=== PATIENT | female | born 1950 | race Caucasian/White ===

== ENCOUNTER 2023-11-18 12:05 | Emergency (ER) | payer OTHER, SELFPAY ==
[2023-11-18 12:14] VITALS: BP 170/86; PULSE 60; RESP 18; TEMP 36.6; O2SAT 99; BMI 22.3
--- NOTE | 2023-11-18 12:56 | CRLHL7_ITS ---
For Patients: As a result of the Century Cures Act, medical imaging exams and procedure reports are released immediately into your electronic medical record. You may view this report before your referring provider. If you have questions, please contact your health care provider. INDICATION: Elbow injury from Fall TECHNIQUE: Elbow radiograph 3 views right COMPARISON: None FINDINGS: Bone: No acute fractures or aggressive bone lesions are identified. Joint: The elbow joint is unremarkable. Moderate elbow effusion is present with displacement of the anterior fat pad. Soft tissue: Unremarkable. No radiopaque foreign bodies are seen. IMPRESSION: 1. Moderate elbow effusion is present with displacement of the anterior fat pad. While no acute osseous injuries are demonstrated, the presence of an elbow effusion in the setting of trauma is highly suspicious for an occult osseous injury. Evaluation with MRI or CT may be helpful. Dictated by Salomon Addison MD @ 11/18/2023 2:15:22 PM Dictated by: Salomon Addison MD @ 11/18/2023 14:15:26 (Electronically Signed)
--- NOTE | 2023-11-18 12:56 | CRLHL7_ITS ---
For Patients: As a result of the Cures Act, medical imaging exams and procedure reports are released immediately into your electronic medical record. You may view this report before your referring provider. If you have questions, please contact your health care provider. INDICATION: Shoulder injury from Fall TECHNIQUE: Shoulder radiograph 3 views right COMPARISON: None FINDINGS: Bone: No acute fractures or aggressive bone lesions are identified. Lateral downsloping of the acromion is present which can predispose this patient to subacromial impingement. Joint: Osteoarthritis at the glenohumeral joint is noted but difficult to quantify since the joint is not profiled. The acromioclavicular joint has mild osteoarthritis. Soft tissue: Unremarkable. The visualized hemithorax is unremarkable in appearance. No radiopaque foreign bodies are seen. IMPRESSIONS: 1. No acute osseous injuries or abnormalities are noted. 2. Lateral downsloping of the acromion is present which can predispose this patient to subacromial impingement. Dictated by Salomon Addison MD @ 11/18/2023 2:15:58 PM Dictated by: Salomon Addison MD @ 11/18/2023 14:16:03 (Electronically Signed)
--- NOTE | 2023-11-18 12:56 | CRLHL7_ITS ---
For Patients: As a result of the Cures Act, medical imaging exams and procedure reports are released immediately into your electronic medical record. You may view this report before your referring provider. If you have questions, please contact your health care provider. INDICATION: Humerus injury from Fall TECHNIQUE: Humerus radiograph 2 views right COMPARISON: None FINDINGS: Bone: No acute fractures or aggressive bone lesions are identified. Moderate diffuse osteopenia is present. Joint: An elbow effusion is present and discussed on separate report. Mild AC and glenohumeral joint osteoarthritis are noted. Soft tissue: Unremarkable. No radiopaque foreign bodies are seen. IMPRESSION: 1. No acute osseous injuries or abnormalities are noted. Dictated by Salomon Addison MD @ 11/18/2023 2:17:04 PM Dictated by: Salomon Addison MD @ 11/18/2023 14:17:08 (Electronically Signed)
--- NOTE | 2023-11-18 12:58 | ED.GENADULT ---
HPI - General Adult General Chief complaint: Extremity Pain/Injury, Upper Stated complaint: Right arm pain Time Seen by Provider: 11/18/23 12:07 History of Present Illness HPI narrative: Patient is a 71 year white female who fell last she fell forward hit her chin hit both arms, zoey her right arm and shoulder. Subsequently over the next few days she was trying to put a shirt on and felt the abnormal sensation right upper extremity cause pain. She she is not noting pain around her elbow on the right and in her distal biceps area and distal arm. She has had limitations in full flexion of her elbow she is able to extend her elbow. She is able to pronate and supinate but with some limitations of extremes of range of motion. She has no marked bruising or ecchymoses but it is a little bit swollen she has been icing it. She has no neck pain she also describes some mild anterior shoulder discomfort. No neck pain. Related Data Home Medications ?Medication ?Instructions ?Recorded ?Confirmed alendronate 70 mg tablet 70 mg PO 11/18/23 latanoprost 0.005 % eye drops drp ophthalmic (eye) 11/18/23 lisinopril 10 mg tablet 10 mg PO BID 11/18/23 11/18/23 metoprolol succinate 25 mg 25 mg PO BID 11/18/23 11/18/23 tablet,extended release 24 hr rivaroxaban 20 mg tablet (Xarelto) 20 mg PO DAILY 11/18/23 11/18/23 rosuvastatin 10 mg tablet 10 mg PO QPM 11/18/23 11/18/23 ticagrelor 90 mg tablet (Brilinta) 90 mg PO BID 11/18/23 11/18/23 Allergies Allergy/AdvReac Type Severity Reaction Status Date / Time adhesive Allergy Unknown Verified 11/18/23 12:12 Sulfa (Sulfonamide Allergy Unknown Verified 11/18/23 12:12 Antibiotics) Review of Systems Status of ROS: Reports: 6 or more systems reviewed and unremarkable except as noted in History and below [facility] Social History Smoking Status: Never smoker How often do you have a drink containing alcohol: never AUDIT-C Alcohol total score: 0 Non-prescribed substance use: denies use Exam Narrative: Exam Narrative: Objective: In general patient is no apparent distress Systolic blood pressure slightly elevated Right anterior shoulder shows some mild anterior tenderness, her right elbow shows limited full flexion to about 45? short of full flexion. She is able to pronate and supinate but some diminished range of motion She get a bruise thenar eminence but has full range of motion with thumb and wrist. Denies other specific concerns. There is no obvious biceps rupture, and no marked medial lateral proximal forearm or distal arm tenderness. Const: Vital Signs, click to edit/add: Vital Signs - 24 hr 11/18/23 12:14 11/18/23 14:36 Temperature 97.9 F 97.9 F Pulse Rate [Pulse Oximeter] 60 60 Respiratory Rate 18 18 Blood Pressure [Ri ght Upper Arm] 170/86 H 170/86 H Pulse Oximetry 99 Oxygen Delivery Me thod Room Air Course Vital Signs Vital signs: Initial Vital Signs Temperature 97.9 F 11/18/23 12:14 Temperature Source Oral 11/18/23 12:14 Pulse Rate 60 11/18/23 12:14 Pulse Rhythm Regular 11/18/23 12:14 Respiratory Rate 18 11/18/23 12:14 Blood Pressure 170/86 H 11/18/23 12:14 Blood Pressure Mean 114 H 11/18/23 12:14 Blood Pressure Position Sitting 11/18/23 12:14 Pulse Oximetry 99 11/18/23 12:14 Oxygen Delivery Method Room Air 11/18/23 12:14 Vital Signs Temperature 97.9 F 11/18/23 12:14 Pulse Rate 60 11/18/23 12:14 Respiratory Rate 18 11/18/23 12:14 Blood Pressure 170/86 H 11/18/23 12:14 Pulse Oximetry 99 11/18/23 12:14 Oxygen Delivery Method Room Air 11/18/23 12:14 Temperature 97.9 F 11/18/23 14:36 Pulse Rate 60 11/18/23 14:36 Respiratory Rate 18 11/18/23 14:36 Blood Pressure 170/86 H 11/18/23 14:36 Pulse Oximetry 99 11/18/23 12:14 Oxygen Delivery Method Room Air 11/18/23 12:14 Medical Decision Making MDM Narrative Medical decision making narrative: [age] white female with a fall with a right elbow injury and probable right shoulder injury from a jarring of the fall. Would check an x-ray of her humerus on the right her elbow and her shoulder. Disposition pending findings. She also is on Xarelto. Disposition pending x-ray findings. If these are reassuring she may benefit from a sling icing and follow up with orthopedics on an outpatient basis. Addendum 2:21 p.m. 11/18/2023: The patient has an x-ray that shows a posterior fat pad sign consistent with an occult fracture. I do not see any obvious other fracture of her elbow. Her humerus and shoulder appear unremarkable. She was placed in a posterior arm sling and a posterior arm splint with Ortho last. This procedure was accomplished by myself. She was comfortable the positioning of the splint and did not feel it was too tight. At this point recommend orthopedic follow-up in 3-5 days, Advil or Tylenol for discomfort. And she does have a travel planned in the next week so trying get her in to Ortho within the next few days to discuss her treatment options. Discharge Plan Discharge Clinical Impression: Injury of elbow, right Patient Disposition: Home w/ Parent or Adult Condition: Improved Additional Instructions: Elevate, ice, use Advil as needed or Tylenol. Recommend Ortho follow-up in the next 3-5 days. If you don't hear back from Ortho Clinic by Monday afternoon, call [phone] for an appointment. Wear your arm sling, return if problems or concerns or your sling is too tight. Activity Level: Light activity Discharge Diet: Regular Prescriptions: No Action latanoprost 0.005 % drops ophthalmic (eye) alendronate 70 mg tablet 70 mg PO lisinopril 10 mg tablet 10 mg PO BID metoprolol succinate 25 mg tablet extended release 24 hr 25 mg PO BID rosuvastatin 10 mg tablet 10 mg PO QPM Brilinta 90 mg tablet 90 mg PO BID Xarelto 20 mg tablet 20 mg PO DAILY Follow Up/Referrals: Laurita Duncan MD [Primary Care Provider] - Stand Alone Forms: [employer] Info Instructions
[2023-11-18 14:36] VITALS: BP 170/86; PULSE 60; RESP 18; TEMP 36.6
== END 2023-11-18 14:37 | disposition home or self-care (01) ==
PROVIDERS: Emergency Provider Family Medicine; PCP Family Medicine
DX: S59.901A Unspecified injury of right elbow, initial encounter (principal); W19.XXXA Unspecified fall, initial encounter
CPT/HCPCS: 73030; 73060; 73080; 99283; 99284

== ENCOUNTER 2024-02-27 09:00 | Outpatient (RCR) | payer MEDICARE, OTHER, SELFPAY ==
--- NOTE | 2024-01-04 09:35 | OT.OPOE ---
OT Outpatient Ortho Eval OT Outpatient Ortho Eval* Start: 01/04/24 08:16 Freq: Status: Active Protocol: Document 01/04/24 08:16 CHAPIS (Rec: 01/04/24 09:33 CHAPIS [id number]) E-signed By Tanisha Cosme, OTR/L, CLT OT OP Ortho Eval Details Complexity Complexity Low Insurance Information Insurance Information [employer],Medicare B Outpatient History/Precautions Current Condition/Medical Diagnosis Referring Provider Dr. Rigoberto Cedillo Medical Diagnoses S42.401D Fracture of the lower end of Right humerus, subsequent encounter for fracture with routine healing Right radial neck occult fracture Treatment Diagnosis Stiffness of R elbow, M25.621 R elbow pain, M25.521 Date of Onset 11/16/2023 Other Precautions Ortho f/u was on 12/18/23: She may continue to ramp up activity as her elbow will allow. If symptoms are significantly improved in 4-6 weeks, she does not need to return to see me. If otherwise, she should return to see me. She is comfortable with this plan. Other Conditions Fracture of right elbow (Acute ) S42.401A - Unspecified fracture of lower end of right humerus, initial encounter for closed fracture (ICD-10) Medical History (Reviewed @ 14:29 by Gisselle Davies ~ LAT ATC) Osteopenia M85.80 - Other specified disorders of bone density and structure, unspecified site ( ICD-10) CAD in [place] artery I25.10 - Atherosclerotic heart disease of [place] coronary artery without angina pectoris (ICD-10) Paroxysmal supraventricular tachycardia I47.10 - Supraventricular tachycardia, unspecified (ICD- 10) Surgical History (Reviewed @ 14:29 by Gisselle Davies ~ LAT ATC) History of heart artery stent Z95.5 - Presence of coronary angioplasty implant and graft (ICD-10) History of biopsy (11/1994) Z98.890 - Other specified postprocedural states (ICD-10) History of open reduction and internal fixation (ORIF) procedure (1983) Z98.890 - Other specified postprocedural states (ICD-10) Lipoma (1994) D17.9 - Benign lipomatous neoplasm, unspecified (ICD-10) Medical/Functional History Medical History Reviewed Yes Prior Level of Function/Mobility Indep with ADLs/IADLs and still Driving Social History Employment Status Retired Other Critical Job [employer] 2 grandkids that are 4 and 8 years old 2x/week Ortho Subjective Subjective Subjective Patient is a pleasant 73yr old female. Presented to the ED with right upper extremity pain on 11/16/23 after falling from a standing height. She had x-rays of her shoulder, arm and elbow. She was placed in a long-arm splint in asked to follow-up. She is right- hand dominant. She has never injured this area previously. On 11/20/23 she was seen by Ortho provider, Dr. Cedillo. The Ameya Navarrete splint was removed.= with some antecubital fossa ecchymosis. The contour of the biceps and elbow was normal. She had a second f/u apt with Ortho again on 12/18/23 and was referred to skilled OT to address AROM of the R elbow, address some mild pain/ discomfort and slowly begin strengthening with a customized HEP. Pain Assessment Pain Pain Yes Pain Comments 04/29 R elbow/forearm including the R wrist Goniometric Comments Goniometric Comments Goniometric Comments R Elbow (Extension/Flexion) range of motion is 5-135 degrees with 90? of pronation/ supination in L and R forearm R wrist Flexion 50 degrees, Extension 60 degrees (L non effected side is 55 degrees of Flexion and 65 degrees of Extension Hand Pinch/Excel Developer Strength Hand Pinch/Excel Developer Strength Hand Pinch/Excel Developer Strength Left Hand,Right Hand Left Hand Excel Developer Strength Position 1 in Elbow 50 Flexion (lbs) Excel Developer Strength Position 2 in Elbow 57 Extension (lbs) Lateral Pinch Strength (lbs) 10 Three Point Pinch (lbs) 10 Right Hand Excel Developer Strength Position 1 in Elbow 45 Flexion (lbs) Excel Developer Strength Position 2 in Elbow 50 Extension (lbs) Lateral Pinch Strength (lbs) 16 Three Point Pinch (lbs) 16 OT Objective Data Observations/Posture/Limb Appearance Objective Observations Right elbow: Residual forearm ecchymosis Additional Information Objective Additional Information IMAGING: AP, Lateral and Radial Head views of the right elbow were obtained today. These potentially show a nondisplaced radial neck fracture, seen only on the AP view on the ulnar side of the neck. OT Problems Problems Problems Decreased Strength,Decreased Range of Motion,Pain,Lifting, Gripping,Pinching Other Problems Writing,Opening Containers, Dressing Patient Potential Good Assessment Assessment Assessment Patient is a pleasant 73yr old female. Presented to the ED with right upper extremity pain on 11/16/23 after falling from a standing height. She had x-rays of her shoulder, arm and elbow. She was placed in a long-arm splint in asked to follow-up. She is right- hand dominant. She has never injured this area previously. On 11/20/23 she was seen by Ortho provider, Dr. Cedillo. The Ameya Navarrete splint was removed.= with some antecubital fossa ecchymosis. The contour of the biceps and elbow was normal. She had a second f/u apt with Ortho again on 12/18/23 and was referred to skilled OT to address AROM of the R elbow, address some mild pain/ discomfort and slowly begin strengthening with a customized HEP. PLAN: treat pain symptoms with the use of modalities as indicated, manual therapy for progressing AROM, development of an individualized HEP, patient education on the progression of treatment and activity modifications while healing. 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 2. Through activity participation in skilled therapy sessions, and consistency in performing a customized HEP, patient will improve capacity of tendons and muscles to manage load in order to have less pain with ADLs, work, leisure activities and IADLs. 3. Patient will demonstrate an improvement in the R hand/ wrist/forearm/elbow AROM in order to return to every day household and leisure tasks w/ o difficulty or discomfort. Target Date 8 weeks Treatment Plan Treatment Plan Evaluation,Joint Mobilization, Manual Therapy,Ultrasound, Therapeutic Exercise, Therapeutic Activities,Self Care/Home Management,Education Expected Frequency 1-2x Week Expected Duration 8-10 Weeks Home Program Home Program Home Program Initiated Home Program Specifics Access Code: [email or web address] URL: [email or web address] Date: 01/04/2024 Prepared by: Tanisha Cosme Exercises - Supine Elbow Flexion Extension AROM - 1 x daily - 7 x weekly - 3 sets - 10 reps - Forearm Pronation and Supination with Hammer - 1 x daily - 7 x weekly - 3 sets - 10 reps - Forearm AAROM Supination and Pronation with Ball - 1 x daily - 7 x weekly - 3 sets - 10 reps - Wrist AAROM Flexion and Extension - 1 x daily - 7 x weekly - 3 sets - 10 reps - Wrist Prayer Stretch at Table - 1 x daily - 7 x weekly - 3 sets - 10 reps - Standing Wall Ball Circles with Mini Monegasque Ball - 1 x daily - 7 x weekly - 3 sets - 10 reps - Scaption Wall Slide with Towel - 1 x daily - 7 x weekly - 3 sets - 10 reps - Shoulder Circles on Wall with Towel - 1 x daily - 7 x weekly - 3 sets - 10 reps Certification Certification Statement I Certify That: Therapy Services Provided, Therapy Plan Established, Therapy Plan Reviewed Certification Information Clinic ID # [id number] Initial Certification Date 01/04/24 Recertification Due Date 03/04/24 Provider Signature Required Yes Provider Signature Shows Agreement With POC & Medical Necessity Physician NPI Number Write NPI# Here Physician Comment/Change Comment or Changes Physician Signature & Date Requested Please Sign/Date Here
== END 2024-02-27 09:55 | disposition home or self-care (01) ==
PROVIDERS: PCP Family Medicine; Visit Provider Orthopaedic Surgery
DX: S42.401D Unspecified fracture of lower end of right humerus, subsequent encounter for fracture with routine healing (principal); M25.621 Stiffness of right elbow, not elsewhere classified; M25.521 Pain in right elbow; Z51.89 Encounter for other specified aftercare
CPT/HCPCS: 97110; 97140; 97165; X5282

== ENCOUNTER 2024-12-13 22:04 | Emergency (ER) | payer MEDICARE, SELFPAY ==
--- OUTSIDE RECORDS SUMMARY | 2024-12-13 22:06 | XMS_ITS | Encounter Summary ---
Author Organization [facility] Address [address] [place] [address]. [place] [address] Care Team Providers Care Battery Tester Name Role Phone Laurita Duncan MD Primary Care Provider + Rivka Stroud DO Unavailable [phone] William Ordoñez MD Unavailable [phone] Rivka Stroud DO Unavailable [phone] Encounter Details Date Type Department Care Team (Late st Contact Info) Description 04/12/2024 [facility] Medical Advice [facility] Heart Clinic [address] [address] May Social History Tobacco Use Types Packs/Day Years Used Date Smoking Tobacco: Never Smokeless Tobacco: Never Alcohol Use Standard Drinks/Week Comments No 0 (1 standard drink = 0.6 oz pur e alcohol) PHQ-2 Answer Date Recorded PHQ-2 Score 0 03/31/2023 Adolescent Education Answer Date Record ed Getting School Help Needed Not on file 12/04 Comments Unknown Sex and Gender Information Value Date Recorded Sex Assigned at Not on file 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 Gender Identity Not on file Sexual Orientation Not on file documented as of this encounter Plan of Treatment Not on file documented as of this encounter Visit Diagnoses Not on filedocumented in this encounter Care Teams Battery Tester Relationship Specialty Start Date End Date Laurita Duncan MD [facility] [address] [place] [address] PCP - General Family Practice 10/18/17 Rivka Stroud DO [address] [place] [address] Physician Cardiovascular Disease 01/06/23 William Ordoñez MD [address] [facility] [address] [place] [address] Assigned Heart and Vascular Provider 10/13/23 08/11/24 Rivka Stroud DO [address] [place] [address] Assigned Heart and Vascular Provider 08/12/24 documented as of this encounter
--- OUTSIDE RECORDS SUMMARY | 2024-12-13 22:06 | XMS_ITS | Encounter Summary ---
Author Organization [place] Address [facility] [place] [address] Care Team Providers Care Home Care Manager Rn Name Role Phone Laurita Duncan MD Primary Care Provider + Rivka Stroud DO Unavailable [phone] Rivka Stroud DO Unavailable [phone] Reason for Visit * Reason Onset Date Comments Symptoms 11/22/2024 Shortness of hari ath Encounter Details Date Type Department Care Team (Late st Contact Info) Description 11/22/2024 Telephone [facility] Clinic [address] [place] [address] Rivka Stroud DO [address] [facility] [address] [place] [address] Symptoms (Shortness of breath ) Social History Tobacco Use Types Packs/Day Years [...] on file 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 Rizzo recommendations. Patient verbalized understanding and is in agreement with plan. Patient will call us in January when she is ready to transition from Brilinta to Plavix. Probably brillinta but she agreed to continue to the end of this year. At the end of January we can switch her to plavix without loading dose. Dr. Stroud * Telephone Encounter - Dwayne Kauffman RN - 11/22/2024 3:41 PM CDT RN called patient and she confirmed for RN that she has been noticing some intermittent shortness of breath with light activity. Patient denies any shortness of breath at rest. Patient currently denies any shortness of breath or chest pain. Patient also denies any chest pain/pressure at rest or with activity. Patient reports the shortness of breath with activity is intermittent and doesn't alwaysoccur. Patient was concerned the shortness of breath was caused by Brilinta. RN reviewed with patient that typically that occurs at rest and/or is not associated with activity. RN did advise patient that this RN will send these updates to Dr. Stroud for review and recommendation. Patient verbalizedunderstanding and is in agreement with plan. Of note: patient had negative stress test on 08/05/24 * Telephone Encounter - Marissa Garza - 11/22/2024 3:23 PM CDT [facility] Call Center Phone Message May a detailed message be left on voicemail: yes Reason for Call: Symptoms or Concerns If patient has red-flag symptoms, warm transfer to triage line Current symptom or concern: Shortness of breath Patient stated they have been experiencing shortness of breath more than normal and will like to know if they could stop taking Brilinta for a bit to see if that helps with it, or will like to know what provider recommends. Patient stated the shortness of breath happens more often when they are doing some little activity. Patient is feeling fine as of now. Please call patient back to further discuss. Action Taken: Other: Cardiology Travel Screening: Not Applicable Thank you! [facility] documented in this encounter Plan of Treatment Not on file documented as of this encounter Visit Diagnoses Not on filedocumented in this encounter Care Teams Home Care Manager Rn Relationship Specialty Start Date End Date Laurita Duncan MD [facility] [address] [place] [address] PCP - General Family Practice 10/18/17 Rivka Stroud DO [address] [facility] [address] [place] [address] Physician Cardiovascular Disease 01/06/23 Rivka Stroud DO [address] [facility] [address] [place] [address] Assigned Heart and Vascular Provider 08/12/24 documented as of this encounter
--- OUTSIDE RECORDS SUMMARY | 2024-12-13 22:06 | XMS_ITS | Encounter Summary ---
Author Organization [facility] Address [address] [place] [address]. [place] [address] Care Team Providers Care Medical Biller Coder Name Role Phone Laurita Duncan MD Primary Care Provider + Rivka Stroud DO Unavailable + [phone] William Ordoñez MD Unavailable [phone] Rivka Stroud DO Unavailable [phone] Reason for Visit * Reason Onset Date Comments Refill Request 04/15/2024 metoprolol succi megan ER (TOPROL XL) 25 MG 24 hr tablet Encounter Details Date Type Department Care Team (Late st Contact Info) Description 04/15/2024 Telephone [facility] [address] [facility] [address] [place] [address] Rivka Stroud DO [address] [facility] [address] [place], [place] [id number] Refill Request (metoprolol succinate ER (TOPROL XL) 25 MG 24 hr tablet) Social History Tobacco Use Types Packs/Day Years [...] on file Legal Sex 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 Yes Name of medication being requested: metoprolol succinate ER (TOPROL XL) 25 MG 24 hr tablet Provider who prescribed the medication: Dr. Stroud Pharmacy: [facility] HOME DELIVERY - [address] Date medication is needed: 04/29/2024 Action Taken: Other: Cardiology Travel Screening: Not Applicable Thank you! [facility] Date of Service: ONNEL ASSISTANT documented in this encounter Plan of Treatment Not on file documented as of this encounter Visit Diagnoses Not on filedocumented in this encounter Care Teams Medical Biller Coder Relationship Specialty Start Date End Date Laurita Duncan MD [facility] [id number] [place] [id number] PCP - General Family Practice 10/18/17 Rivka Stroud DO [address] [place] [id number] Physician Cardiovascular Disease 01/06/23 William Ordoñez MD [address] [place] [id number] Assigned Heart and Vascular Provider 10/13/23 08/11/24 Rivka Stroud DO [address] [place] [id number] Assigned Heart and Vascular Provider 08/12/24 documented as of this encounter
--- OUTSIDE RECORDS SUMMARY | 2024-12-13 22:06 | XMS_ITS | Clinical Summary ---
Author Organization [facility] Address [address] [place] [id number] Care Team Providers Care Farmworker Pullet Farm Name Role Phone Laurita Duncan MD Primary Care Provider + Allergies Active Allergy Reactions Criticality Noted Date Comments Adhesive Rash 06/05/2023 Reddness/itching of the skin from stickers at [facility] Codeine 03/19/2010 Sulfa (Sulfonamide Antibiotics) 03/19/2010 Medications calcium with vitamin D3 (OS-MARISELA 500 + D) tabletIndication s:Osteopenia Take 1 tablet by mouth once daily with a meal. 1 tablet 0 06/12/2014 Active latanoprost (XALATAN) 0.005 % ophthalmic solution 07/01/2020 Active medication order composerIndicati ons:Foot pain, left Lace up ankle support brace 1 Each 10/12/2020 Active ticagrelor (BRILINTA) 90 mg tablet Take 90 mg by mouth two times daily. 08/07/2023 Active rivaroxaban (XARELTO) 20 mg tablet Take 20 mg by mouth once daily with evening meal. 06/05/2023 Active rosuvastatin (CRESTOR) 10 mg tablet Take 10 mg by mouth once daily with evening meal. 04/24/2023 Active nitroglycerin (NITROSTAT) 0.[address] 0.4 mg under the tongue every 5 minutes if needed. 02/15/2023 Active lisinopriL (PRINIVIL; ZESTRIL) 10 mg tabletIndication s:HTN (hypertension) Take 1 Tablet (10 mg) by mouth two times daily. 08/11/2023 Active metoprolol succinate 25 mg Sustained-Releas e tablet Take 25 mg by mouth two times daily. 04/15/2024 Active alendronate (FOSAMAX) 70 mg tabletIndication s:Osteopenia, unspecified location Take 1 Tablet (70 mg) by mouth once a week in the morning. Take on empty stomach with full glass of water. Do not lie down for 1 hr. 13 Tablet 3 09/04/2024 Active Active Problems Problem Noted Date Diagnosed Date CAD in benton artery 08/11/2023 Overview (08/11/2023): 2022: She was referred for coronary angiogram that showed a significant 95% stenosis in the mid RCA and mild to moderate disease elsewhere. She underwent a complex PCI using a 2.75 x 15 mm drug-eluting stent leaving 70% residual stenosis postintervention. She returned to the Senior Applications Analyst on 03/03/2023 as part of a staged repeat intervention with intracoronary lithotripsy and laser atherectomy followed by a 3.5 x 20 mm MARIE proximal to and overlapping the original stent. Paroxysmal SVT (supraventricular tachycardia) Overview (01/18/2023): Zio 12/2022; >10 000 episodes History of COVID-19 07/26/2021 Overview (07/26/2021): Onset 07/15/2021 HTN (hypertension) 06/12/2014 Arthritis 04/09/2010 Osteopenia 04/09/2010 Overview (06/12/2014): 11.13.2006 normal BMD of the spine; mild penia of the left hip. Went off the fosamax in 2010 with normal BMD and mild penia of hip improved. Plan to recheck in 2016. Resolved Problems Problem Noted Date Diagnosed Date Resolved Date Lymphoma 04/09/2010 04/09/2010 Environmental allergies 04/09/201005/22 Hypertension 04/09/2010 05/25/2011 Encounters Date Type Department Care Team Description 09/13/2024 Telephone [facility] [address] [place] [address] Laurita Duncan MD Results 09/12/2024 10:00 AM CDT Orders Only [facility] [address] [place] [address] Lab 09/12/2024 Travel from Last 3 Months Immunizations Immunization Administration Dates Next Due COVID-19 vaccine (Pfizer-Bio NTech 30mcg/0.3mL) 12YO+ BIVALENT PF, MDV 11/26/2021 COVID-19 vaccine (Pfizer-Bio NTech 30mcg/0.3mL) PF, MDV 12/29/2020,05/19/2020,04/28/2020 Influenza, IIV3 (Age >=3 years) 03/06/2013 Influenza, Inactivated AIIV4 (Age 65+ Years) Preserv Free 12/28/2022,12/20/2021 Influenza, Inactivated IIV3 (Age 65+ Years) Preserv Free 11/22/2023,02/25/2019,01/03/2018 Pneumococcal Poly,23-Valent (Pneumovax) 10/08/19 21 Pneumococcal conj 13-Valent (Prevnar 13) 020 Td (Age >=7 Years) 09/06/2004 Tdap 06/12/2014 Family History Medical History Relation Name Comments Good Health Daughter 1 Tari Good Health Daughter 2 Marjorie Thyroid Disease Daughter 2 Marjorie s/p thyroide ctomy; benign Heart Disease Father [place] during surg mikael Hypertension Father Stroke Father had a brain sergio or Emphysema Maternal Grandmother Hypertension Mother Heart attack Paternal Grandfather Dementia Paternal Grandmother Hypertension Sister 1 Christie severe Heart Disease Sister 2 Carly ACID/pacemaker , silent [place] Hypertension Sister 2 Carly Hypertension Sister 3 Concetta Hypertension Son 1 Ameya Liver disease Son 1 Ameya Good Health Son 2 Ed Relation Name Status Comments Daughter 1 Tari Alive Daughter 2 Marjorie Alive Father (Age 60's) brain ca ncer, stroke Maternal Grandfather Maternal Grandmother Mother (Age 82) lung cance r Paternal Grandfather Paternal Grandmother Sister 1 Christie (Age 44) heart dise ase Sister 2 Carly Alive Sister 3 Concetta Alive Son 1 Ameya Son 2 Ed Alive Social History Tobacco Use Types Packs/Day Years Used Date Smoking Tobacco: Never Passive Smoke Exposure: Never Smokeless Tobacco: Never Tobacco Cessation:Counseling Given: Not Answered Alcohol Use Standard Drinks/Week Comments No 0 (1 standard drink = 0.6 oz pur e alcohol) PHQ-2 Answer Date Recorded PHQ-2 TOTAL SCORE 0 06/20/2024 Social Connections Answer Date Recorded Do you often feel lonely or isolated from those around you? 0 12/28/2022 Financial Resource Strain Answer Date R ecorded Difficulty of Paying Living Expenses 3 12/28/2022 Difficulty of Paying Living Expenses Not on file 12/28/2022 Food Insecurity Answer Date Recorded Do you worry your food will run out before you are able to buy more? 1 12/28/2022 Transportation Needs Answer Date Record ed Does lack of transportation keep you from medica l appointments? 1 12/28/2022 Does lack of transportation keep you from work, meetings or getting things that you need? 1 12/28/2022 Housing Stability Answer Date Recorded What is your housing situation today? 1 12/28/2022 Comments No Sex and Gender Information Value Date Recorded Sex Assigned at Not on file Legal Sex Female 7:53 AM AUTOMOBILE UPHOLSTERER Gender Identity Not on file Sexual Orientation Not on file Obstetrics History Para Term AB IAB SAB Ectopic Multiple Livin g Live Births 7 0 0 0 0 0 0 0 0 4 Date Outcome GA Total Labor Labor/2nd/3rd Weight Sex Type Anes PTL Marilyn A1 A5 Name Clin Comments Patient had 7 pregnancies wi th 3 miscarriages and 4 live births Last Filed Vital Signs Vital Sign Reading Time Taken Comments Blood Pressure 136/74 06/20/2024 8:27 AM CDT Pulse 68 06/20/2024 8:27 AM CDT Temperature 36.6 C (97.9 F) 06/20/2024 8:27 AM CDT Respiratory Rate 14 04/22/2015 9:20 AM AUTOMOBILE UPHOLSTERER Oxygen Saturation - - Inhaled Oxygen Concentration - - Weight 60.9 kg (134 lb 4.8 oz) 06/20/2024 8:27 A M CDT Height 163.2 cm (5' 4.25) 08/09/2023 7:31 AM CD T Body Mass Index 22.87 08/09/2023 7:31 AM CDT Plan of Treatment Health Maintenance Due Date Last Done Comments Hepatitis C screening for age 18-79 07/02/1969 Zoster (shingles) series for age 50+ (1 of 2) 07/02/2001 RSV vaccine for adults or (1 - Risk 60-74 years 1-dose series) 2011 Medicare Wellness for age 65+ 12/29/2023 12/28/2022, 12/20/2021, 10/07/2020, Additional history exists Tetanus booster 06/12/2024 06/12/2014, 09/06/2004 BMI (ht and wt on same day) for age 18+ 08/08/2024 08/09/2023, 12/28/2022, 03/21/2022, Additional history exists COVID-19 vaccine series ( season) 2024 11/26/2021, 07/01/2021, 12/29/2020, Additional history exists Influenza Vaccine (#1) 2024 , 12/28/2022, 12/20/2021, Additional history exists Mammogram for age 45-75 01/04/2025 01/05/20 24, 12/28/2022, 12/23/2021, Additional history exists Depression screening for age 12+ 06/21/2025 06/21/2024, 06/20/2024, 12/28/2022, Additional history exists Colonoscopy through age 75 11/03/2027 11/02/2017, Lipids for age 45-75 09/12/2029 09/12/2024, 12/20/2021, 09/07/2016, Additional history exists Pneumococcal series for age 50+ Completed 10/07/2020, 02/25/2019 DEXA/DXA scan for age 65+ Completed 2022, 04/01/2019, 06/30/2015, Additional history exists Hepatitis B series for 19+ Aged Out N o longer eligible based on patient's age to complete this topic Procedures Procedure Name Priority Date/Time Associated Diagnosis Comments BASIC METABOLIC PANEL Routine 09/12/2024 9:50 AM CDT HTN (hypertension) CAD in benton artery LIPID PANEL W REFLEX MEASURED LDL Routine 09/12/2024 9:50 AM CDT HTN (hypertension) CAD in benton artery XR MAMMO JUSTIN BILAT SCREEN Routine 01/05/2024 1:33 PM AUTOMOBILE UPHOLSTERER Screening breast examination XR DXA BONE DENSITY 2 SITES AXIAL Routine 01/17/2023 2:15 PM AUTOMOBILE UPHOLSTERER Osteopenia, unspecified location Post-menopausal SCAN-COLONOSCOPY 11/02/2017 12:0 0 AM CDT from Last 3 Months or Most Recently Relevant to Health Maintenance Results * LIPID PANEL W REFLEX MEASURED LDL (09/12/2024 9:50 AM CDT) CHOLESTEROL, TOTAL 119 <200 mg/dL 09/13/2024 4:54 AM CDT [facility] TRIGLYCERIDES 80 <150 mg/dL 09/13/2024 4:54 AM CDT [facility] HDL CHOLESTEROL 65 > OR = 50 mg/dL 09/13/2024 4:54 AM CDT [facility] NON HDL CHOLESTEROL 54 <130 mg/dL (calc) 09/13/2024 4:54 AM CDT [facility] Comment: For patients with diabetes plus 1 major ASCVD risk factor, treating to a non-HDL-C goal of <100 mg/dL (LDL-C of <70 mg/dL) is considered a therapeutic option. CHOL/HDLC RATIO 1.8 <5.0 (calc) 09/13/2024 4:54 AM CDT [facility] LDL-CHOLESTEROL 38 mg/dL (calc) 09/13/2024 4:54 AM CDT [facility] Comment: Reference range: <100 Desirable range <100 mg/dL for primary prevention; <70 mg/dL for patients with CHD or diabetic patients with > or = 2 CHD risk factors. LDL-C is now calculated using the Harman calculation, which is a validated novel method providing better accuracy than the Friedewald equation in the estimation of LDL-C. Ricky BLANCO et al. ROBERT. 2013;310(19): 4290-1250 (http://education.LOC&ALL.eeden/faq/EDT197) Blood BLOOD SPECIMEN / Unknown [facility] / Unknown 09/12/2024 9:50 AM CDT 09/12/2024 9:50 AM CDT us Laurita Duncan MD CHEMISTRY Final Re sult [facility] [address] [place] [address], * (ABNORMAL) BASIC METABOLIC PANEL (09/12/2024 9:50 AM CDT) Pathologist [facility] SODIUM 141 135 - 146 mmol/L 09/13/2024 4:54 AM CDT [facility] POTASSIUM 4.6 3.5 - 5.3 mmol/L 09/13/2024 4:54 AM CDT [facility] CARBON DIOXIDE 28 20 - 32 mmol/L 09/13/2024 4:54 AM CDT [facility] GLUCOSE 100(H) 65 - 99 mg/dL 09/13/2024 4:54 AM CDT [facility] Comment: Fasting reference interval For someone without known diabetes, a glucose value between 100 and 125 mg/dL is consistent with prediabetes and should be confirmed with a follow-up test. CALCIUM 10.2 8.6 - 10.4 mg/dL 09/13/2024 4:54 AM CDT [facility] CREATININE 0.84 0.60 - 1.00 mg/dL 09/13/2024 4:54 AM CDT [facility] BUN/CREATININE RATIO SEE NOTE: 6 - 22 (calc) 09/13/2024 4:54 AM CDT [facility] Comment: Not Reported: BUN and Creatinine are within reference range. EGFR 73 > OR = 60 mL/min/1. 73m2 09/13/2024 4:54 AM CDT [facility] UREA NITROGEN (BUN) 16 7 - 25 mg/dL 09/13/2024 4:54 AM CDT [facility] ELECTROLYTE BALANCE 6(L) 7 - 17 mmol/L (calc) 09/13/2024 4:54 AM CDT [facility] CHLORIDE 107 98 - 110 mmol/L 09/13/2024 4:54 AM CDT [facility] Blood BLOOD SPECIMEN / Unknown [facility] / Unknown 09/12/2024 9:50 AM CDT 09/12/2024 9:50 AM CDT us Laurita Duncan MD CHEMISTRY Final Re sult [facility] [address] [place] [address], * XR MAMMO JUSTIN BILAT SCREEN (01/05/2024 1:33 PM AUTOMOBILE UPHOLSTERER) Anatomical Region Laterality Modality BREASTS, Breast Left, Breast Right Bilateral Mammography 01/05/2024 1:33 PM AUTOMOBILE UPHOLSTERER Impressions 01/08/2024 8:52 AM AUTOMOBILE UPHOLSTERER IMPRESSION: ACR BI-RADS 1: Negative Recommended follow-up: Annual Mammography beginning at age 40 or as discussed with your provider. When performed, computer-aided detection was used in the interpretation of this study. A lay language report of this examination will be mailed to the patient. LIFETIME BREAST CANCER RISK ASSESSMENT SCORE: Lifetime risk of developing breast cancer is 3.8% calculated using the Maya Model and information provided by the patient at the time of screening. The average lifetime risk for developing breast cancer is 12.9% for women born in the [place]. For patients with a lifetime breast cancer risk assessment score of less than 20%, annual screening mammography is recommended. For patients with a lifetime risk of greater than 20%, annual screening mammography supplemented with annual Breast MRI is recommended. Patients in this category are encouraged to discuss this recommendation with their healthcare provider to determine if Breast MRI is appropriate and if so, to obtain a referral and confirm coverage with their health insurance. Recommendations are based on the [employer] Appropriateness Criteria. Patients with a BI-RADS category of 0 should follow the recommendations for further evaluation before considering supplemental screening. Narrative 01/08/2024 8:52 AM AUTOMOBILE UPHOLSTERER EXAM: MAMMOGRAM SCREENING JUSTIN BILATERAL LOCATION: [facility] DATE: 01/05/2024 INDICATION: Asymptomatic. Screening Mammogram. COMPARISON: 12/28/22, 12/23/21 BREAST DENSITY: The breasts are heterogeneously dense, which may obscure small masses. FINDINGS: Tomosynthesis craniocaudal and mediolateral oblique views were obtained. No concerning mammographic findings. Procedure Note Duncan Boucher MD - 01/08/2024 EXAM: MAMMOGRAM SCREENING JUSTIN BILATERAL LOCATION: [facility] DATE: 01/05/2024 INDICATION: Asymptomatic. Screening Mammogram. COMPARISON: 12/28/22, 12/23/21 BREAST DENSITY: The breasts are heterogeneously dense, which may obscure small masses. FINDINGS: Tomosynthesis craniocaudal and mediolateral oblique views were obtained. No concerning mammographic findings. IMPRESSION: IMPRESSION: ACR BI-RADS 1: Negative Recommended follow-up: Annual Mammography beginning at age 40 or as discussed with your provider. When performed, computer-aided detection was used in the interpretation of this study. A lay language report of this examination will be mailed to the patient. LIFETIME BREAST CANCER RISK ASSESSMENT SCORE: Lifetime risk of developing breast cancer is 3.8% calculated using the Maya Model and information provided by the patient at the time of screening. The average lifetime risk for developing breast cancer is 12.9% for women born in the [place]. For patients with a lifetime breast cancer risk assessment score of less than 20%, annual screening mammography is recommended. For patients with a lifetime risk of greater than 20%, annual screening mammography supplemented with annual Breast MRI is recommended. Patients in this category are encouraged to discuss this recommendation with their healthcare provider to determine if Breast MRI is appropriate and if so, to obtain a referral and confirm coverage with their health insurance. Recommendations are based on the [employer] Appropriateness Criteria. Patients with a BI-RADS category of 0 should follow the recommendations for further evaluation before considering supplemental screening. Laurita Duncan MD MAMMO Final Re sult * XR DXA BONE DENSITY 2 SITES AXIAL (01/17/2023 2:15 PM AUTOMOBILE UPHOLSTERER) Anatomical Region Laterality Modality Spine, HIPS, HIPL, HIPR Other 01/17/2023 2:15 PM AUTOMOBILE UPHOLSTERER Impressions 01/17/2023 3:44 PM AUTOMOBILE UPHOLSTERER IMPRESSION: Low bone density (OSTEOPENIA). T score meets the WHO criteria for low bone density (osteopenia) at one or more measured sites. The risk of osteoporotic fracture increases approximately two-fold for each standard deviation decrease in T-score. Narrative 01/17/2023 3:44 PM AUTOMOBILE UPHOLSTERER EXAM: BONE DENSITY LOCATION: [facility] DATE: 01/17/2023 INDICATION: Other specified disorders of bone density and structure, unspecified site. Asymptomatic menopausal state. Patient reports history of vertebral fracture. DEMOGRAPHICS: Age- 72 years. Gender- Female. COMPARISON: 04/01/2019. TECHNIQUE: Dual-energy x-ray absorptiometry (DXA) performed with routine technique. FINDINGS: DXA RESULTS -Lumbar Spine: L1-L4: BMD: 1.201 g/cm2. T-score: 1.4. Z-score: 3.6. -RIGHT Hip Total: BMD: 0.755 g/cm2. T-score: -1.5. Z-score: 0.1. -RIGHT Hip Femoral neck: BMD: 0.658 g/cm2. T-score: -1.7. Z-score: 0.2. -LEFT Hip Total: BMD: 0.655 g/cm2. T-score: -2.4. Z-score: -0.8. -LEFT Hip Femoral neck: BMD: 0.616 g/cm2. T-score: -2.1. Z-score: -0.2. WHO T-SCORE CRITERIA -Normal: T score at or above -1 SD -Osteopenia: T score between -1 and -2.5 SD -Osteoporosis: T score at or below -2.5 SD The World Health Organization (WHO) criteria is applicable to perimenopausal females, postmenopausal females, and men aged 50 years or older. INTERVAL CHANGE -There has been a 5.9% increase in lumbar spine BMD. -There has been a 3.8% decrease in the right hip BMD. -There has been a 8.0% decrease in the left hip BMD. FRACTURE RISK -FRAX Results: The 10 year probability of major osteoporotic fracture is 11.0%, and of hip fracture is 2.5%, based on left femoral neck BMD. RECOMMENDATIONS Consider treatment if major osteoporotic fracture score is greater than or equal to 20%, or if the hip fracture score is greater than or equal to 3%. Procedure Note Elvis Rubalcava MD - 01/17/2023 EXAM: BONE DENSITY LOCATION: [facility] DATE: 01/17/2023 INDICATION: Other specified disorders of bone density and structure, unspecified site. Asymptomatic menopausal state. Patient reports history of vertebral fracture. DEMOGRAPHICS: Age- 72 years. Gender- Female. COMPARISON: 04/01/2019. TECHNIQUE: Dual-energy x-ray absorptiometry (DXA) performed with routine technique. FINDINGS: DXA RESULTS -Lumbar Spine: L1-L4: BMD: 1.201 g/cm2. T-score: 1.4. Z-score: 3.6. -RIGHT Hip Total: BMD: 0.755 g/cm2. T-score: -1.5. Z-score: 0.1. -RIGHT Hip Femoral neck: BMD: 0.658 g/cm2. T-score: -1.7. Z-score: 0.2. -LEFT Hip Total: BMD: 0.655 g/cm2. T-score: -2.4. Z-score: -0.8. -LEFT Hip Femoral neck: BMD: 0.616 g/cm2. T-score: -2.1. Z-score: -0.2. WHO T-SCORE CRITERIA -Normal: T score at or above -1 SD -Osteopenia: T score between -1 and -2.5 SD -Osteoporosis: T score at or below -2.5 SD The World Health Organization (WHO) criteria is applicable to perimenopausal females, postmenopausal females, and men aged 50 years or older. INTERVAL CHANGE -There has been a 5.9% increase in lumbar spine BMD. -There has been a 3.8% decrease in the right hip BMD. -There has been a 8.0% decrease in the left hip BMD. FRACTURE RISK -FRAX Results: The 10 year probability of major osteoporotic fracture is 11.0%, and of hip fracture is 2.5%, based on left femoral neck BMD. RECOMMENDATIONS Consider treatment if major osteoporotic fracture score is greater than or equal to 20%, or if the hip fracture score is greater than or equal to 3%. IMPRESSION: IMPRESSION: Low bone density (OSTEOPENIA). T score meets the WHO criteria for low bone density (osteopenia) at one or more measured sites. The risk of osteoporotic fracture increases approximately two-fold for each standard deviation decrease in T-score. us Laurita Duncan MD DEXA Final Re sult * SCAN-COLONOSCOPY (11/02/2017 12:00 AM CDT) us Scanner OTHER Final Result from Last 3 Months or Most Recently Relevant to Health Maintenance Insurance [employer] HB ONLY MEDICARE PART B HB ONLY [facility] Care Teams [employer]worker [employer] Relationship Specialty Start Date End Date Laurita Duncan MD PCP - General 06/15/09
--- OUTSIDE RECORDS SUMMARY | 2024-12-13 22:06 | XMS_ITS | Encounter Summary ---
Author Organization [facility] Address [address] [place] [address]. [place] [address] Care Team Providers Care Route Sales Delivery Driver Name Role Phone Laurita Duncan MD Primary Care Provider + Rivka Stroud DO Unavailable [phone] William Ordoñez MD Unavailable [phone] Rivka Stroud DO Unavailable [phone] Reason for Visit * Reason Onset Date Comments Call to schedule test 07/26/2024 NM Stress test in [place] Encounter Details Date Type Department Care Team (Late st Contact Info) Description 07/26/2024 Telephone [facility] [address] [place] [address] Rivka Stroud DO [address] [facility] [address] [place], [place] [address] Call to schedule test (NM Stress test in [place] ) Social History Tobacco Use Types Packs/Day [...] on file Legal Sex Female 3:33 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 [facility] Date of Service: documented in this encounter Plan of Treatment Not on file documented as of this encounter Visit Diagnoses Not on filedocumented in this encounter Care Teams Route Sales Delivery Driver Relationship Specialty Start Date End Date Laurita Duncan MD [facility] [address] [place] [address] PCP - General Family Practice 10/18/17 Rivka Stroud DO [address] [place] [address] Physician Cardiovascular Disease 01/06/23 William Ordoñez MD [address] [place] [address] Assigned Heart and Vascular Provider 10/13/23 08/11/24 Rivka Stroud DO [address] [place] [address] Assigned Heart and Vascular Provider 08/12/24 documented as of this encounter
--- OUTSIDE RECORDS SUMMARY | 2024-12-13 22:06 | XMS_ITS | Clinical Summary ---
Author Organization [facility] Address [address] [place] [address] Care Team Providers Care Loan Specialist Name Role Phone Laurita Duncan MD Primary Care Provider + Rivka Stroud DO Unavailable [phone] Rivka Stroud DO Unavailable [phone] Allergies Active Allergy Reactions Criticality Noted Date Comments Adhesive Tape 06/05/2023 Reddness/itching of the skin from stickers at [facility] Codeine Nausea 08/05/2014 Sulfa Antibiotics Nausea 08/05/2014 Medications alendronate (FOSAMAX) 70 MG tablet Take 70 mg by mouth every 7 days 3 Active latanoprost (XALATAN) 0.005 % ophthalmic solution Place into both eyes daily 3 Active calcium carbonate (OS-MARISELA) 1500 (600 Ca) MG tablet Take by mouth daily Active acetaminophen (TYLENOL) 500 MG tablet Take 500-1,000 mg by mouth every 6 hours as needed for mild pain OTC Active nitroGLYcerin (NITROSTAT) 0.4 MG sublingual tabletIndications:O ther cardiomyopathy (H),Abnormal electrocardiogram,S VT (supraventricular tachycardia),Precor dial pain,Family history of ischemic heart disease One tablet under the tongue every 5 minutes if needed for chest pain. May repeat every 5 minutes for a maximum of 3 doses in 15 minutes 25 tablet 2 4 Active lisinopril (ZESTRIL) 10 MG tabletIndications:O ther cardiomyopathy (H) Take 1 tablet (10 mg) by mouth 2 times daily. APPT REQUIRED FOR FURTHER REFILLS 180 tablet 4 5 Active metoprolol succinate ER (TOPROL XL) 25 MG 24 hr tabletIndications:C oronary artery disease involving [place] coronary artery of [place] heart without angina pectoris Take 1 tablet (25 mg) by mouth 2 times daily. 180 tablet 4 5 Active rosuvastatin (CRESTOR) 10 MG tabletIndications:O ther cardiomyopathy (H),Abnormal electrocardiogram,S VT (supraventricular tachycardia),Precor dial pain,Family history of ischemic heart disease Take 1 tablet (10 mg) by mouth daily. 90 tablet 4 5 Active rivaroxaban ANTICOAGULANT (XARELTO) 20 MG TABS tabletIndications:P aroxysmal atrial fibrillation (H) Take 1 tablet (20 mg) by mouth daily (with dinner). 90 tablet 4 5 Active BRILINTA 90 MG tabletIndications:O ther cardiomyopathy (H),Abnormal electrocardiogram,S VT (supraventricular tachycardia),Precor dial pain,Family history of ischemic heart disease Take 1 tablet (90 mg) by mouth 2 times daily. 180 tablet 1 5 Active Active Problems Problem Noted Date Diagnosed Date Ischemic cardiomyopathy 03/31/2023 SVT (supraventricular tachycardia) 03/31/2023 PAC (premature atrial contraction) 03/31/2023 Hyperlipidemia with target LDL less than 70 10/2023 Benign essential hypertension 03/31/2023 Percutaneous transluminal coronary angioplasty s tatus 02/15/2023 Encounters Date Type Department Care Team Description 11/22/2024 Telephone [facility] [address] [place] [address] Rivka Stroud DO Symptoms (Shortness of breath ) from Last 3 Months Immunizations Immunization Administration Dates Next Due COVID-19 MONOVALENT 12+ (Pfizer) 12/29/2020,04/22,04/28/2020 COVID-19 Monovalent 12+ (Pfizer 2021) 07/01/2021 Flu 65+ (Fluad) 02/25/2019,01/03/2018 Influenza (IIV3) PF 03/06/2013 Pneumo Conj 13-V (2010&after) 02/25/2019 Pneumococcal 23 valent 10/07/2020 TDAP (Adacel,Boostrix) 06/12/2014 Td (Adult), Adsorbed 09/06/2004 Family History Medical History Relation Comments Brain Cancer Father Cerebrovascular Disease Father Myocardial Infarction Father Brain Cancer Mother Lung Cancer Mother Liver Disease Son 2 Colon Cancer No family hx of Relation Status Comments Daughter 1 Alive Daughter 2 Alive Father Mother Sister 1 heart disease Sister 2 Alive Sister 3 Alive Son 1 Alive Son 2 Social History Tobacco Use Types Packs/Day Years Used Date Smoking Tobacco: Never Smokeless Tobacco: Never Tobacco Cessation:Counseling Given: [...] on file Legal Sex Female 3:33 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 Gender Identity Not on file Sexual Orientation Not on file Last Filed Vital Signs Vital Sign Reading Time Taken Comments Blood Pressure 142/70 08/05/2024 2:31 PM CDT Pulse 69 08/05/2024 2:31 PM CDT Temperature 36.8 C (98.3 F) 03/03/2023 6:46 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 Respiratory Rate 16 03/03/2023 2:00 PM SELF PAY COLLECTOR Oxygen Saturation 97% 08/05/2024 12:23 PM CDT Inhaled Oxygen Concentration - - Weight 58.8 kg (129 lb 9.6 oz) 08/05/2024 12:23 PM CDT Height 165.1 cm (5' 5) 08/05/2024 12:23 PM CDT Body Mass Index 21.57 08/05/2024 12:23 PM CDT Plan of Treatment Health Maintenance Due Date Last Done Comments ADVANCE CARE PLANNING 1950 ANNUAL REVIEW OF HM ORDERS 1950 CT COLONOGRAPHY 1950 FIT 1950 FLEX SIG 1950 sDNA (Cologuard) 1950 HEPATITIS C SCREENING 07/02/1969 RSV VACCINE (1 - Risk 50-74 years 1-dose series) 07/02/2001 ZOSTER VACCINE (1 of 2) 07/02/2001 FALL RISK ASSESSMENT 07/02/2016 MEDICARE ANNUAL WELLNESS VISIT 12/29/2023 12/28/2022, 12/20/2021 PHQ-2 (once per calendar year) 2024 03/31/2023, 01/31/2023 BMP 03/03/2024 03/03/2023, 02/15/2023 LIPID 03/03/2024 03/03/2023 DTAP/TDAP/TD VACCINE (2 - Td or Tdap) 06/12/2024 06/12/2014, 09/06/2004 COVID-19 VACCINE ( season) 2024 11/26/2021, 07/01/2021, 12/29/2020, Additional history exists INFLUENZA VACCINE (#1) 2024 , 12/28/2022, 12/20/2021, Additional history exists MAMMO SCREENING 01/04/2026 01/05/2024, 12/21, 12/28/2022, Additional history exists DIABETES SCREENING 03/03/2026 03/03/2023, 02/15/2023 COLONOSCOPY 11/03/2027 11/02/2017, 10/21, 11/02/2017, Additional history exists DEXA 01/17/2038 01/17/2023 PNEUMOCOCCAL VACCINE 50+ YEARS Completed 10/07/2020, 02/25/2019 COLORECTAL CANCER SCREENING Discontinued HPV VACCINE (No Doses Required) Completed MENINGITIS VACCINE Aged Out No longer eligible based on patient's age to complete this topic Medical Devices Implanted Type Area Procedure Analyst Device Identifier Shelf Expiration Date Model / Serial / Lot Stent Coronary Sabino Synergy Xd Mr Us [id number] - [id number] Implanted:Qty: 1 on 03/03/2023 at [facility] Stent Drug Eluting (SABINO) [employer] 12/27/2023 [id number] / / [id number] Stent Cor [place] 15x2.75mm [id number] - [id number] Implanted:Qty: 1 on 02/15/2023 at [facility] Stent [employer] 07/02/2023 [id number] / / [id number] Closure Angioseal 6fr [id number] - [id number] Implanted:Qty: 1 on 02/15/2023 at [facility] [employer] 05/21/2023 [id number] / / [id number] Procedures Procedure Name Priority Date/Time Associated Diagnosis Comments LIPID PROFILE STAT Add-on 03/03/2023 7:00 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 BASIC METABOLIC PANEL STAT 03/03/2023 7:00 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 MAMMOGRAM - HIM SCAN 11/14/2017 12:00 AM CDT COLONOSCOPY Routine 11/02/2017 9:28 AM CDT from Last 3 Months or Most Recently Relevant to Health Maintenance Results * Lipid Profile (03/03/2023 7:00 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) Cholesterol 119 <200 mg/dL 03/04/2023 8:43 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 [facility] Triglycerides 58 <150 mg/dL 03/04/2023 8:43 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 [facility] Direct Measure HDL 65 >=50 mg/dL 2023 8:43 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 [facility] LDL Cholesterol Calculated 42 <=100 mg/dL 03/04/2023 8:43 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 [facility] Non HDL Cholesterol 54 <130 mg/dL 03/04/2023 8:43 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 [facility] Blood BLOOD SPECIMEN / Unknown Venipuncture / Unknown 03/03/2023 7:00 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 03/03/2023 7:02 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 Narrative [facility] - 03/04/2023 8:43 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 Cholesterol Desirable: <200 mg/dL Triglycerides Normal: Less than 150 mg/dL Borderline High: 150-199 mg/dL High: 200-499 mg/dL Very High: Greater than or equal to 500 mg/dL Direct Measure HDL Female: Greater than or equal to 50 mg/dL Male: Greater than or equal to 40 mg/dL LDL Cholesterol Desirable: <100mg/dL Above Desirable: 100-129 mg/dL Borderline High: 130-159 mg/dL High: 160-189 mg/dL Very High: >= 190 mg/dL Non HDL Cholesterol Desirable: 130 mg/dL Above Desirable: 130-159 mg/dL Borderline High: 160-189 mg/dL High: 190-219 mg/dL Very High: Greater than or equal to 220 mg/dL us Life Science Technician Invasive LAB - BLOOD ORDERABLES Final Result [facility] [address] [facility], [address] [place] [address] [phone] * (ABNORMAL) Basic metabolic panel (03/03/2023 7:00 AM [facility]) Sodium 140 135 - 145 mmol/L 03/03/2023 7:31 AM [facility] Comment:Reference intervals for this test were updated on 11/15/2022 to more accurately reflect our healthy population. There may be differences in the flagging of prior results with similar values performed with this method. Interpretation of those prior results can be made in the context of the updated reference intervals. Potassium 4.2 3.4 - 5.3 mmol/L 03/03/2023 7:31 AM [facility] Chloride 106 98 - 107 mmol/L 03/03/2023 7:31 AM [facility] Carbon Dioxide (CO2) 28 22 - 29 mmol/L 03/03/2023 7:31 AM [facility] Anion Gap 6(L) 7 - 15 mmol/L 03/03/2023 7:31 AM [facility] Urea Nitrogen 15.3 8.0 - 23.0 mg/dL 03/03/2023 7:31 AM [facility] Creatinine 0.91 0.51 - 0.95 mg/dL 03/03/2023 7:31 AM [facility] GFR Estimate 67 >60 mL/min/1. 73m2 03/03/2023 7:31 AM [facility] Calcium 10.1 8.8 - 10.2 mg/dL 03/03/2023 7:31 AM [facility] Glucose 99 70 - 99 mg/dL 03/03/2023 7:31 AM [facility] Blood BLOOD SPECIMEN / Unknown Venipuncture / Unknown 03/03/2023 7:00 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 03/03/2023 7:02 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 us Rivka Jeri Stroud DO LAB - BLOOD ORDERAB LES Final Result [facility]ORATORY [facility] [address], [address] [place] [address], [facility] [phone] * MAMMOGRAM - HIM SCAN (11/14/2017 12:00 AM CDT) Anatomical Region Laterality Modality Other 11/14/2017 us Provider Outside IMG MAMMOGRAPHY ORDERABLES Tami l Result * COLONOSCOPY (11/02/2017 9:28 AM CDT) COLONOSCOPY [facility] Patient Name: Aleshia Hurtado Procedure Date: 11/02/2017 9:28 AM Date of : 1950 Admit Type: Outpatient Age: 67 Gender: Female Attending MD: Sam Altman MD Total Sedation Time: __20___minutes continuous bedside 1:1 Instrument Name: 138 Procedure: Colonoscopy Indications: Screening for colorectal malignant neoplasm Providers: Sam Altman MD (Doctor) Referring MD: Laurita Duncan MD (Referring MD) Medicines: Midazolam 2 mg IV, Fentanyl 100 micrograms IV Complications: No immediate complications. Procedure: Pre-Anesthesia Assessment: - Prior to the procedure, a History and Physical was performed, and patient medications and allergies were reviewed. The patient is competent. The risks and benefits of the procedure and the sedation options and risks were discussed with the patient. All questions were answered and informed consent was obtained. Patient identification and proposed procedure were verified by the physician in the procedure room. Mental Status Examination: alert and oriented. Airway Examination: normal oropharyngeal airway and neck mobility. Respiratory Examination: clear to auscultation. CV Examination: normal. Prophylactic Antibiotics: The patient does not require prophylactic antibiotics. Prior Anticoagulants: The patient has taken no previous anticoagulant or antiplatelet agents. ASA Grade Assessment: I - A normal, healthy patient. After reviewing the risks and benefits, the patient was deemed in satisfactory condition to undergo the procedure. The anesthesia plan was to use moderate sedation / analgesia (conscious sedation). Immediately prior to administration of medications, the patient was re-assessed for adequacy to receive sedatives. The heart rate, respiratory rate, oxygen saturations, blood pressure, adequacy of pulmonary ventilation, and response to care were monitored throughout the procedure. The physical status of the patient was re-assessed after the procedure. After obtaining informed consent, the colonoscope was passed under direct vision. Throughout the procedure, the patient's blood pressure, pulse, and oxygen saturations were monitored continuously. The Olympus Peds Colonoscope Model #[id number]-[id number], [place]#[id number], SN#[id number] was introduced through the anus and advanced to the cecum, identified by appendiceal orifice and ileocecal valve. The colonoscopy was performed without difficulty. The patient tolerated the procedure well. The quality of the bowel preparation was good. Findings: The perianal and digital rectal examinations were normal. The entire examined colon appeared normal on direct and retroflexion views. Impression: - The entire examined colon is normal on direct and retroflexion views. - No specimens collected. Recommendation: - Discharge patient to home. - No repeat colonoscopy due to age. Procedure Code(s): --- Professional --- G0121, Colorectal cancer screening; colonoscopy on individual not meeting criteria for high risk Diagnosis Code(s): --- Professional --- Z12.11, Encounter for screening for malignant neoplasm of colon CPT copyright 2017 [employer]. All rights reserved. The codes documented in this report are preliminary and upon health and safety manager review may be revised to meet current compliance requirements. Electronically signed by Sam Altman MD __ Sam Altman MD 11/02/2017 10:12:48 AM I was physically present for the entire viewing portion of the exam. Sam Altman MD Number of Addenda: 0 Note Initiated On: 11/02/2017 9:28 AM Procedure Date: 11/02/2017 9:28:44 AM Scope Withdrawal Time: 0 hours 6 minutes 23 seconds Total Procedure Duration: 0 hours 19 minutes 5 seconds Estimated Blood Loss: Scope In: 9:47:43 AM Scope Out: 10:06:48 AM RADIOLOGY RESULTS 11/02/2017 9:28 AM CDT Laurita Duncan MD PROCEDURES Final Re sult RADIOLOGY RESULTS from Last 3 Months or Most Recently Relevant to Health Maintenance Insurance [facility] MEDICARE ADVANTAGE [employer] MEDICARE ADVANTAGE Care Teams Loan Specialist Relationship Specialty Start Date End Date Laurita Duncan MD [facility] [address] [place] [address] PCP - General Family Practice 10/18/17 Rivka Stroud DO [address] [place] [address] Physician Cardiovascular Disease 01/06/23 Rivka Stroud DO [address] [place] [address] Assigned Heart and Vascular Provider 08/12/24
--- OUTSIDE RECORDS SUMMARY | 2024-12-13 22:06 | XMS_ITS | Encounter Summary ---
Author Organization [facility] Address [address] [place] [address] Care Team Providers Care Manager Plant Name Role Phone Laurita Duncan MD Primary Care Provider + Rivka Stroud DO Unavailable [phone] Smita Mcclain APRN GRADUATE NURSE Unavailable [phone] Hardik Sainz MD Unavailable William Ordoñez MD Unavailable [phone] Luanne, Rivka Wilcox DO Unavailable [phone] William Ordoñez MD Unavailable [phone] Dankldayana, Rivka Wilcox DO Unavailable [phone] Encounter Details Date Type Department Care Team (Late st Contact Info) Description 05/08/2023 MyC Medical Advice [facility] Heart [address] [place] [phone] Dwayne Kauffman, KEVIN Social History Tobacco Use Types Packs/Day Years [...] on file Legal Sex 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:33 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 Gender Identity Not on file Sexual Orientation Not on file documented as of this encounter Plan of Treatment Not on file documented as of this encounter Visit Diagnoses Not on filedocumented in this encounter Care Teams Manager Plant Relationship Specialty Start Date End Date Laurita Duncan MD [facility] [address] [place] [address] PCP - General Family Practice 10/18/17 Rivka Stroud DO [address] [place] [address] Physician Cardiovascular Disease 01/06/23 Smita Mcclain APRN CNP [address] [place] [address] Assigned Heart and Vascular Provider 04/14/23 06/12/23 Hardik Sainz MD [address] [place] [address] Assigned Heart and Vascular Provider 06/13/23 07/12/23 William Ordoñez MD [address] [place] [address] Assigned Heart and Vascular Provider 07/13/23 08/12/23 Rivka Stroud DO [address] [place] [address] Assigned Heart and Vascular Provider 08/13/23 10/12/23 William Ordoñez MD [address] [place] [address] Assigned Heart and Vascular Provider 10/13/23 08/11/24 Rivka Stroud DO [address] [place] [address] Assigned Heart and Vascular Provider 08/12/24 documented as of this encounter
[2024-12-13 22:07] VITALS: BP 151/84; PULSE 105; RESP 18; TEMP 36.1; O2SAT 97; BMI 22.6
--- NOTE | 2024-12-13 22:25 | ED.GENADULT ---
HPI - General Adult General Chief complaint: Shortness of Breath/Dyspnea <Alvarado Orozco MD - Last Filed: 12/14/24 01:59> Stated complaint: difficulty breathing/heart palpitations <Alvarado Orozco MD - Last Filed: 12/14/24 01:59> Time Seen by Provider: 12/13/24 22:25 <Alvarado Orozco MD - Last Filed: 12/14/24 01:59> History of Present Illness HPI narrative: Patient has been having shortness of breath for about a week with any kind of activity. Patient has seen doctor and thinks it might be related to Brilinta. Patient thinks shortness of breath is getting much worse this week . Patient had episode of palpitations with shortness of breath today . 74-year-old woman presenting to the emergency department with concern of increasing shortness of breath palpitations and lightheadedness. Over the last week or so has been more short of breath. There is some question about whether not Brilinta might be contributing. She has not had any cough or cold symptoms. Feeling a sense of irregular heartbeat more today along the shortness of breath and lightheadedness. Not actually with chest pain. Nausea. Does have a history of cardiac stenting with 2 stents placed last year. She takes rivaroxaban over this last year and may have missed a dose or 2 a couple of weeks ago otherwise has definitely taken regularly over the last month. She reports that 1 month ago passed a nuclear med stress test. There is a history of supraventricular tachycardia, paroxysmal, but she denies a history of atrial fibrillation. History of sleep apnea Further past medical includes ischemic cardiomyopathy and were able to locate documentation of paroxysmal atrial fibrillation Clear stress test from July 2024 was negative for inducible myocardial ischemia. EF at stress of 35%. EKG at that time did confirm sinus rhythm and left bundle branch block Receives cardiac care through [facility]. Dr. Stroud is primary paper bag making machinist <Alvarado Orozco MD - Last Filed: 12/14/24 01:59> Related Data Home medications: Home Medications ?Medication ?Instructions ?Recorded ?Confirmed alendronate 70 mg tablet 70 mg PO 11/18/23 04/17/24 latanoprost 0.005 % eye drops drp ophthalmic (eye) 11/18/23 04/17/24 lisinopril 10 mg tablet 10 mg PO BID 11/18/23 12/13/24 metoprolol succinate 25 mg 25 mg PO BID 11/18/23 12/13/24 tablet,extended release 24 hr rivaroxaban 20 mg tablet (Xarelto) 20 mg PO DAILY 11/18/23 12/13/24 rosuvastatin 10 mg tablet 10 mg PO QPM 11/18/23 12/13/24 ticagrelor 90 mg tablet (Brilinta) 90 mg PO BID 11/18/23 12/13/24 nitroglycerin 0.4 mg sublingual mg sublingual 11/20/23 04/17/24 tablet <Alvarado Orozco MD - Last Filed: 12/14/24 01:59> Allergies/adverse reactions: Allergies Allergy/AdvReac Type Severity Reaction Status Date / Time adhesive Allergy Unknown Verified 12/13/24 22:13 Sulfa (Sulfonamide Allergy Unknown Verified 12/13/24 22:13 Antibiotics) codeine AdvReac Nausea Verified 12/13/24 22:13 <Alvarado Orozco MD - Last Filed: 12/14/24 01:59> Review of Systems Status of ROS: Reports: 6 or more systems reviewed and unremarkable except as noted in History and below <Alvarado Orozco MD - Last Filed: 12/14/24 01:59> [facility] Medical History: Medical History Osteopenia ?M85.80 - Other specified disorders of bone density and structure, unspecified site (ICD-10) CAD in [place]vas[place]ai artery ?I25.10 - Atherosclerotic heart disease of [place]vas[place] coronary artery without angina pectoris (ICD-10) Paroxysmal supraventricular tachycardia ?I47.10 - Supraventricular tachycardia, unspecified (ICD-10) <Alvarado Orozco MD - Last Filed: 12/14/24 01:59> Surgical History: Surgical History History of heart artery stent ?Z95.5 - Presence of coronary angioplasty implant and graft (ICD-10) History of biopsy (11/1994) ?Z98.890 - Other specified postprocedural states (ICD-10) History of open reduction and internal fixation (ORIF) procedure (1983) ?Z98.890 - Other specified postprocedural states (ICD-10) Lipoma (1995) ?D17.9 - Benign lipomatous neoplasm, unspecified (ICD-10) <Alvarado Orozco MD - Last Filed: 12/14/24 01:59> Social History: Social History Smoking Status: Never smoker Second hand tobacco smoke exposure: No How often do you have a drink containing alcohol: never AUDIT-C Alcohol total score: 0 Non-prescribed substance use: denies use <Alvarado Orozco MD - Last Filed: 12/14/24 01:59> Exam Narrative: Exam Narrative: Very pleasant. Easily conversant. Cranial nerves 2-12 intact. Breathing easily. Lungs are clear. Heart is in a rapid rate with irregularly irregular beat. Abdomen is soft nontender. Extremities well perfused without edema. <Alvarado Orozco MD - Last Filed: 12/14/24 01:59> Const: Vital Signs, click to edit/add: Vital Signs - 24 hr 12/13/24 22:07 12/13/24 22:44 12/13/24 23:02 Temperature 97.0 F L Pulse Rate Pulse Rate [Pulse Oximeter] 105 H Respiratory Rate 18 12 14 Blood Pressure 172/106 H 128/89 Blood Pressure [Ri ght Upper Arm] 151/84 H Pulse Oximetry 97 Oxygen Delivery Me thod Oxygen Flow Rate 12/13/24 23:31 12/14/24 00:35 12/14/24 00:50 Temperature 98.0 F Pulse Rate 71 105 H Pulse Rate [Pulse Oximeter] Respiratory Rate 12 18 Blood Pressure 137/98 H 155/111 H Blood Pressure [Ri ght Upper Arm] Pulse Oximetry 97 97 Oxygen Delivery Me thod Nasal Cannula Nasal Cannula Oxygen Flow Rate 2 2 <Alvarado Orozco MD - Last Filed: 12/14/24 01:59> Vital Signs, click to edit/add: Vital Signs - 24 hr 12/13/24 22:07 12/13/24 22:44 12/13/24 23:02 Temperature 97.0 F L Pulse Rate Pulse Rate [Pulse Oximeter] 105 H Respiratory Rate 18 12 14 Blood Pressure 172/106 H 128/89 Blood Pressure [Ri ght Upper Arm] 151/84 H Pulse Oximetry 97 Oxygen Delivery Me thod Oxygen Flow Rate 12/13/24 23:31 12/14/24 00:35 12/14/24 00:50 Temperature 98.0 F Pulse Rate 71 105 H Pulse Rate [Pulse Oximeter] Respiratory Rate 12 18 Blood Pressure 137/98 H 155/111 H Blood Pressure [Ri ght Upper Arm] Pulse Oximetry 97 97 Oxygen Delivery Me thod Nasal Cannula Nasal Cannula Oxygen Flow Rate 2 2 <Jeri Dick MD - Last Filed: 12/15/24 08:09> Documenting provider has reviewed patient's vital signs: yes <Alvarado Orozco MD - Last Filed: 12/14/24 01:59> Course Consultations Consultation #1: Sedation note: I was asked to provide sedation for cardioversion. Risks and benefits were discussed, consent signed. Patient was maintained on cardiac, pulse ox and end-tidal CO2 monitoring. She was given propofol fall, a total of 40 mg based on a weight of 60 kg with adequate sedation. She required a jaw thrust to maintain her end tidal adequately, she does have history of sleep apnea and uses CPAP at home. Overall she tolerated everything well, did not have any desaturation or other complications. Awakened without difficulty. <Jeri Dick MD - Last Filed: 12/15/24 08:09> Vital Signs Vital signs: Initial Vital Signs Temperature 97.0 F L 12/13/24 22:07 Temperature Source Temporal Artery Scan 12/13/24 22:07 Pulse Rate 105 H 12/13/24 22:07 Respiratory Rate 18 12/13/24 22:07 Blood Pressure 151/84 H 12/13/24 22:07 Blood Pressure Mean 106 H 12/13/24 22:07 Pulse Oximetry 97 12/13/24 22:07 Vital Signs Temperature 97.0 F L 12/13/24 22:07 Pulse Rate 105 H 12/13/24 22:07 Respiratory Rate 18 12/13/24 22:07 Blood Pressure 151/84 H 12/13/24 22:07 Pulse Oximetry 97 12/13/24 22:07 Temperature 98.4 F 12/14/24 01:50 Pulse Rate 61 12/14/24 01:50 Respiratory Rate 16 12/14/24 01:50 Blood Pressure 146/89 H 12/14/24 01:50 Pulse Oximetry 98 12/14/24 01:50 Oxygen Delivery Method Room Air 12/14/24 01:50 Oxygen Flow Rate 2 12/14/24 01:05 <Alvarado Orozco MD - Last Filed: 12/14/24 01:59> Initial Vital Signs Temperature 97.0 F L 12/13/24 22:07 Temperature Source Temporal Artery Scan 12/13/24 22:07 Pulse Rate 105 H 12/13/24 22:07 Respiratory Rate 18 12/13/24 22:07 Blood Pressure 151/84 H 12/13/24 22:07 Blood Pressure Mean 106 H 12/13/24 22:07 Pulse Oximetry 97 12/13/24 22:07 Vital Signs Temperature 97.0 F L 12/13/24 22:07 Pulse Rate 105 H 12/13/24 22:07 Respiratory Rate 18 12/13/24 22:07 Blood Pressure 151/84 H 12/13/24 22:07 Pulse Oximetry 97 12/13/24 22:07 Temperature 98.4 F 12/14/24 01:50 Pulse Rate 61 12/14/24 01:50 Respiratory Rate 16 12/14/24 01:50 Blood Pressure 146/89 H 12/14/24 01:50 Pulse Oximetry 98 12/14/24 01:50 Oxygen Delivery Method Room Air 12/14/24 01:50 Oxygen Flow Rate 2 12/14/24 01:05 <Jeri Dick MD - Last Filed: 12/15/24 08:09> Medications Administered Medications: Discontinued Medications Generic Name Dose Route Start Last Admin Trade Name Freq PRN Reason Stop Dose Admin Diltiazem HCl 15 mg 12/13/24 22:32 12/13/24 22:42 Diltiazem 5 Mg/Ml Inj IVP 12/13/24 22:33 15 mg ONCE ONE Administration Sodium Chloride 1,000 mls @ 1,000 mls/hr 12/13/24 22:32 12/14/24 00:10 0.9 % Sodium Chloride 1000 Ml IV 12/13/24 23:31 Infused .Q1H ONE Infusion Magnesium Sulfate/Dextrose 1 gm in 100 mls @ 100 mls/hr 12/13/24 23:50 12/14/24 01:11 Magnesium Sulf 1 G/100 Ml IVPB 12/14/24 00:49 Infused ONCE ONE Infusion Propofol 60 mg 12/14/24 00:38 12/14/24 00:54 Propofol 10 Mg/Ml Inj 1 mg/kg (60 mg) 12/14/24 00:39 60 mg IVP Administration ONCE ONE <Alvarado Orozco MD - Last Filed: 12/14/24 01:59> Discontinued Medications Generic Name Dose Route Start Last Admin Trade Name López PRN Reason Stop Dose Admin Diltiazem HCl 15 mg 12/13/24 22:32 12/13/24 22:42 Diltiazem 5 Mg/Ml Inj IVP 12/13/24 22:33 15 mg ONCE ONE Administration Sodium Chloride 1,000 mls @ 1,000 mls/hr 12/13/24 22:32 12/14/24 00:10 0.9 % Sodium Chloride 1000 Ml IV 12/13/24 23:31 Infused .Q1H ONE Infusion Magnesium Sulfate/Dextrose 1 gm in 100 mls @ 100 mls/hr 12/13/24 23:50 12/14/24 01:11 Magnesium Sulf 1 G/100 Ml IVPB 12/14/24 00:49 Infused ONCE ONE Infusion Propofol 60 mg 12/14/24 00:38 12/14/24 00:54 Propofol 10 Mg/Ml Inj 1 mg/kg (60 mg) 12/14/24 00:39 60 mg IVP Administration ONCE ONE <Jeri Dick MD - Last Filed: 12/15/24 08:09> Medical Decision Making [facility] Narrative Medical decision making narrative: Initial EKG independently reviewed by me does confirm atrial fibrillation with RVR at a rate of 126. Does have a wider QRS complex consistent with left bundle-branch block. No prior for comparison at this time. Likely this atrial fibrillation is the source of her fatigue. Initiate IV fluids. Given a dose of diltiazem monitor on drug abuse treatment specialist. Repeat EKG reviewed by me rate has slowed though still in atrial fibrillation at a rate of 73. Left bundle present. Magnesium also is low normal. Given a g IV. Has been symptomatic with apparently new onset atrial fibrillation but has been reliably anticoagulated I would think would be candidate for cardioversion. Ambulated to and from the bathroom in still short of breath upon return to her bed. Did discuss this case with Cardiology on-call. Reviewed records. Discussed options for management including increasing beta-keiry although resting rates on outpatient monitoring in the 50s. Since Aleshia maintains that has been taking Xarelto regularly would also approve cardioversion. Recommending a ZIO patch placement upon discharge regardless. Procedure note Procedure is electrical cardioversion for symptomatic atrial fibrillation with RVR Risks and benefits are discussed with Aleshia and her daughter Informed consent obtained Assisted by Dr. Dick for sedation with propofol. Please see sedation note. Synced cardioversion at 200 joules resulted in tentative but return to normal sinus rhythm. Required jaw thrust for brief apnea. Post cardioversion EKG confirmed sinus rhythm at a rate of 61. And tolerated this quite well. Fully alert reporting that she is feeling much better. Is ambulatory from the ER. See patient discharge plan for further discussion Continue with your usual medications including your Xarelto. We are placing a drug abuse treatment specialist on you for the next couple of weeks. Please schedule follow-up with Cardiology so that you can review the results shortly after turning in the ZIO patch. If you become lightheaded again, feel that you might be atrial fibrillation, your heart is racing, please return for reassessment. <Alvarado Orozco MD - Last Filed: 12/14/24 01:59> Medical Records Medical records reviewed: Yes I reviewed the patient's medical records <Alvarado Orozco MD - Last Filed: 12/14/24 01:59> Lab Data Lab results reviewed: Yes I reviewed the patient's lab results <Alvarado Orozco MD - Last Filed: 12/14/24 01:59> Labs: Lab Results 12/13/24 12/13/24 Range/Units 22:30 23:46 WBC 5.72 (4.50-11.00) K/uL RBC 4.72 (4.00-5.20) m/uL Hgb 13.8 (12.0-16.0) gm/dL Hct 42.7 (33.0-51.0) % MCV 91 (80-100) fL MCH 29 (26-34) pg MCHC 32 (32-36) gm/dL RDW Coeff of Brianna 12.9 (11.5-15.5) % Plt Count 215 (140-440) K/uL Neut % (Auto) 59.9 (42.0-72.0) % Lymph % (Auto) 31.8 (20-44) % [place] % (Auto) 6.3 (0.0-11.0) % Eos % (Auto) 1.0 (0.0-7.0) % Baso % (Auto) 0.3 (0.0-3.0) % Neut # (Auto) 3.42 (1.7-7.0) K/uL Lymph # (Auto) 1.82 (0.90-2.90) K/uL [place] # (Auto) 0.40 (0.00-0.90) K/UL Eos # (Auto) 0.06 (0.00-0.50) K/uL Baso # (Auto) 0.02 (0.00-0.30) K/uL Abs Immat Gran (auto) 0.04 (0.00-0.30) K/uL Imm/Tot Granulo (auto) 0.7 % Sodium 133 L (135-149) mmol/L Potassium 3.7 (3.6-5.1) mmol/L Chloride 110 (96-114) mmol/L Carbon Dioxide 24 (20-32) mmol/L Anion Gap -1 L (7-15) mEq/L BUN 19 (7-30) mg/dL Creatinine 0.9 (0.5-1.5) mg/dL Estimated Creat Clear 43.27 Estimated GFR 68 ml/min Glucose 194 H (60-115) mg/dL Calcium 10.1 (8.4-10.6) mg/dL Magnesium 1.7 (1.5-2.6) mg/dL Troponin I < 0.01 (0.01-0.04) ng/mL NT-Pro-B Natriuret Pep 3370 H (See Note) pg/mL Lab Acknowledgement Test Added <Alvarado Orozco MD - Last Filed: 12/14/24 01:59> Lab Results 12/13/24 12/13/24 Range/Units 22:30 23:46 WBC 5.72 (4.50-11.00) K/uL RBC 4.72 (4.00-5.20) m/uL Hgb 13.8 (12.0-16.0) gm/dL Hct 42.7 (33.0-51.0) % MCV 91 (80-100) fL MCH 29 (26-34) pg MCHC 32 (32-36) gm/dL RDW Coeff of Brianna 12.9 (11.5-15.5) % Plt Count 215 (140-440) K/uL Neut % (Auto) 59.9 (42.0-72.0) % Lymph % (Auto) 31.8 (20-44) % [place] % (Auto) 6.3 (0.0-11.0) % Eos % (Auto) 1.0 (0.0-7.0) % Baso % (Auto) 0.3 (0.0-3.0) % Neut # (Auto) 3.42 (1.7-7.0) K/uL Lymph # (Auto) 1.82 (0.90-2.90) K/uL [place] # (Auto) 0.40 (0.00-0.90) K/UL Eos # (Auto) 0.06 (0.00-0.50) K/uL Baso # (Auto) 0.02 (0.00-0.30) K/uL Abs Immat Gran (auto) 0.04 (0.00-0.30) K/uL Imm/Tot Granulo (auto) 0.7 % Sodium 133 L (135-149) mmol/L Potassium 3.7 (3.6-5.1) mmol/L Chloride 110 (96-114) mmol/L Carbon Dioxide 24 (20-32) mmol/L Anion Gap -1 L (7-15) mEq/L BUN 19 (7-30) mg/dL Creatinine 0.9 (0.5-1.5) mg/dL Estimated Creat Clear 43.27 Estimated GFR 68 ml/min Glucose 194 H (60-115) mg/dL Calcium 10.1 (8.4-10.6) mg/dL Magnesium 1.7 (1.5-2.6) mg/dL Troponin I < 0.01 (0.01-0.04) ng/mL NT-Pro-B Natriuret Pep 3370 H (See Note) pg/mL Lab Acknowledgement Test Added <Jeri Dick MD - Last Filed: 12/15/24 08:09> Critical Care Time Critical Care Time Total Critical Care Time in Minutes: 70 <Alvarado Orozco MD - Last Filed: 12/14/24 01:59> Discharge Plan Discharge Clinical Impression: Paroxysmal A-fib, Cardiomyopathy <Alvarado Orozco MD - Last Filed: 12/14/24 01:59> Patient Disposition: Home w/ Parent or Adult <Alvarado Orozco MD - Last Filed: 12/14/24 01:59> Condition: Improved <Alvarado Orozco MD - Last Filed: 12/14/24 01:59> Additional Instructions: Continue with your usual medications including your Xarelto. We are placing a drug abuse treatment specialist on you for the next couple of weeks. Please schedule follow-up with Cardiology so that you can review the results shortly after turning in the ZIO patch. If you become lightheaded again, feel that you might be atrial fibrillation, your heart is racing, please return for reassessment. <Alvarado Orozco MD - Last Filed: 12/14/24 01:59> Prescriptions: No Action nitroglycerin 0.4 mg tablet, sublingual sublingual latanoprost 0.005 % drops ophthalmic (eye) alendronate 70 mg tablet 70 mg PO lisinopril 10 mg tablet 10 mg PO BID metoprolol succinate 25 mg tablet extended release 24 hr 25 mg PO BID rosuvastatin 10 mg tablet 10 mg PO QPM ticagrelor [Brilinta] 90 mg tablet 90 mg PO BID Xarelto 20 mg tablet 20 mg PO DAILY <Alvarado Orozco MD - Last Filed: 12/14/24 01:59> Follow Up/Referrals: Laurita Duncan MD [Primary Care Provider, Family Practice] <Alvarado Orozco MD - Last Filed: 12/14/24 01:59> Stand Alone Forms: MyHealth Info Instructions <Alvarado Orozco MD - Last Filed: 12/14/24 01:59>
--- NOTE | 2024-12-13 22:32 | CRLHL7_ITS ---
For Patients: As a result of the Century Cures Act, medical imaging exams and procedure reports are released immediately into your electronic medical record. You may view this report before your referring provider. If you have questions, please contact your health care provider. Indication: Dyspnea. Atrial fibrillation. Technique: Chest 1 view. Comparison: None. Findings/Impression: Cardiomegaly. Mild vascular congestion. Patchy bibasilar airspace opacification may reflect atelectasis or developing infectious process. No definite pleural effusion. No pneumothorax. No acute osseous abnormality. Dictated by King Dasilva MD @ 12/13/2024 11:51:47 PM (Electronically Signed)
[2024-12-13] MEDS: dilTIAZem 5 MG/ML inj 15 MG IVP (22:42)
[2024-12-13 22:44] VITALS: BP 172/106; RESP 12
[2024-12-13 22:53] LABS: Hematocrit* 42.7 % (33.0-51.0); Hemoglobin* 13.8 gm/dL (12.0-16.0); Immature Granulocytes Abs Auto 0.04 K/uL (0.00-0.30); Immature Granulocytes Pct Auto 0.7 %; Lymphocytes Absolute Auto 1.82 K/uL (0.90-2.90); Mean Corpuscular HGB Conc 32 gm/dL (32-36); Mean Corpuscular Hemoglobin 29 pg (26-34); Mean Corpuscular Volume 91 fL (80-100); RDW Coefficient of Variation % 12.9 % (11.5-15.5); Red Blood Count* 4.72 m/uL (4.00-5.20); White Blood Count* 5.72 K/uL (4.50-11.00)
[2024-12-13 23:02] VITALS: BP 128/89; RESP 14
[2024-12-13 23:03] LABS: Slide Review Reflex No
[2024-12-13 23:09] LABS: Chloride* 110 mmol/L (96-114); Potassium* 3.7 mmol/L (3.6-5.1); Sodium* 133 mmol/L (135-149)
[2024-12-13 23:12] LABS: Anion Gap -1 mEq/L (7-15); Blood Urea Nitrogen* 19 mg/dL (7-30); Calcium* 10.1 mg/dL (8.4-10.6); Carbon Dioxide* 24 mmol/L (20-32); Creatinine* 0.9 mg/dL (0.5-1.5); Est. Creatinine Clearance* 43.27; Estimated Glomerular Filt Rate 68 ml/min; Glucose* 194 mg/dL (60-115)
[2024-12-13 23:31] VITALS: BP 137/98; PULSE 71; RESP 12
[2024-12-14] VITALS (8 sets, daily range): BP systolic 137–155; BP diastolic 81–111; PULSE 55–105; RESP 16–18; TEMP 36.7–36.9; O2SAT 97–98
[2024-12-14] MEDS: MAGNESIUM SULF 1 G/100 ML 1 GM/100 ML PIGGYBACK IVPB (00:10)
[2024-12-14 00:26] LABS: NT Pro B Type NatriureticPept* 3370 pg/mL (See Note)
[2024-12-14] MEDS: PROPOFOL 10 MG/ML INJ 60 MG IVP (00:54)
== END 2024-12-14 02:05 | disposition home or self-care (01) ==
PROVIDERS: Emergency Provider Family Medicine; PCP Family Medicine
DX: I48.0 Paroxysmal atrial fibrillation (principal); I42.9 Cardiomyopathy, unspecified
CPT/HCPCS: 92960; 36415; 71045; 80048; 83735; 83880; 84484; 85025; 93005; 93246; 96365; 96375; 99156; 99284; 99291; J2704; J3475; J7030

== ENCOUNTER 2025-01-18 05:26 | Emergency (ER) | payer MEDICARE, SELFPAY ==
[2025-01-18] VITALS (16 sets, daily range): BP systolic 126–156; BP diastolic 93–141; PULSE 77–118; RESP 9–26; TEMP 36.1; O2SAT 91–97; BMI 22.6
--- OUTSIDE RECORDS SUMMARY | 2025-01-18 05:29 | XMS_ITS | Encounter Summary ---
Author Organization [facility] Address [address] [place] [address]. 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 Gender Identity Not on file Sexual Orientation Not on file documented as of this encounter Plan of Treatment Upcoming Encounters Date Type Department Care Team (Late st Contact Info) Description 01/20/2025 1:20 PM WEBSPHERE DEVELOPER Office Visit [facility] [address] [place] [address] Kimberly Sotelo PA-C [address] [address] documented as of this encounter Procedures Procedure Name Priority Date/Time Associated Diagnosis Comments NT-PROBNP Routine 12/13/2024 10:30 PM CDT documented in this encounter Results * (ABNORMAL) NT-proBNP (12/13/2024 10:30 PM CDT) N-Terminal Pro BNP (External) 3,370(H) <300 pg/mL LABDE INTERFACE 12/13/2024 10:3 0 PM CDT Narrative PETE PFT - 01/08/2025 8:52 AM WEBSPHERE DEVELOPER Verified by Hernan Sellers on 01/08/2025. us De Interface Lab LAB - BLOOD ORDERABLES Edited R esult - Final PETE PFT LABDE INTERFACE documented in this encounter Visit Diagnoses Not on filedocumented in this encounter Care Teams Cottage Master Relationship Specialty Start Date End Date Laurita Duncan MD [facility] [id number] [place] [address] PCP - General Family Practice 10/18/17 Rivka Stroud DO [address] [place] [address] Physician Cardiovascular Disease 01/06/23 Rivka Stroud DO [address] [place] [address] Assigned Heart and Vascular Provider 08/12/24 Kimberly Sotelo PA-C [address] [id number] Physician Tavern Operator Cardiology 12/18/24 documented as of this encounter
--- OUTSIDE RECORDS SUMMARY | 2025-01-18 05:29 | XMS_ITS | Encounter Summary ---
Author Organization [facility] Address [address] [place] [address] Care Team Providers Care Outside Sales Name Role Phone Laurita Duncan MD Primary Care Provider + Rivka Stroud DO Unavailable [phone] Smita Mcclain APRN MANAGER UNIVERSITY Unavailable [phone] Hardik Sainz MD Unavailable William Ordoñez MD Unavailable [phone] Dankldayana, Rivka Wilcox DO Unavailable [phone] William Ordoñez MD Unavailable [phone] Dankldayana, Rivka Wilcox DO Unavailable [phone] Kimberly Sotelo-C Unavailable [phone] Encounter Details Date Type Department Care Team (Late st Contact Info) Description 05/08/2023 MyC Medical Advice [facility] [address] [place] [address] Dwayne Kauffman RN Social History Tobacco Use Types Packs/Day Years [...] on file Legal 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 Gender Identity Not on file Sexual Orientation Not on file documented as of this encounter Plan of Treatment Upcoming Encounters Date Type Department Care Team (Late st Contact Info) Description 01/20/2025 1:20 PM GARMENT LINER Office Visit [facility] [address] [facility] [address] [place] [id number] Kimberly Sotelo, PA-C [address] [place] [address] [id number] documented as of this encounter Visit Diagnoses Not on filedocumented in this encounter Care Teams Outside Sales Relationship Specialty Start Date End Date Laurita Duncan MD [facility] [address] [place] [address] PCP - General Family Practice 10/18/17 Rivka Stroud DO [address] [place] [address] Physician Cardiovascular Disease 01/06/23 Smita Mcclain APRN CNP [address] [id number] Assigned Heart and Vascular Provider 04/14/23 06/12/23 Hardik Sainz MD [address] [address] Assigned Heart and Vascular Provider 06/13/23 07/12/23 William Ordoñez MD [address] [place] [address] Assigned Heart and Vascular Provider 07/13/23 08/12/23 Rivka Stroud DO [address] [place] [address] Assigned Heart and Vascular Provider 08/13/23 10/12/23 William Ordoñez MD [address] [address] Assigned Heart and Vascular Provider 10/13/23 08/11/24 Rivka Stroud DO [address] [place] [address] Assigned Heart and Vascular Provider 08/12/24 Kimberly Sotelo PA-C [address] [place] [address] Physician Technical Training Instructor Cardiology 12/18/24 documented as of this encounter
--- OUTSIDE RECORDS SUMMARY | 2025-01-18 05:29 | XMS_ITS | Encounter Summary ---
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 Gender Identity Not on file Sexual Orientation Not on file documented as of this encounter Plan of Treatment Upcoming Encounters Date Type Department Care Team (Late Contact Info) Description 01/20/2025 1:20 PM DETAIL ASSEMBLER Office Visit [facility] [address] [facility] [address] [place] [phone] Kimberly Sotelo PA-C [address] [place] [id number] documented as of this encounter Visit Diagnoses Not on filedocumented in this encounter Care Teams Senior Engineering Technician Relationship Specialty Start Date End Date Laurita Duncan MD [facility] [address] [place] [address] PCP - General Family Practice 10/18/17 Rivka Stroud DO [address] [place] [address] Physician Cardiovascular Disease 01/06/23 William Ordoñez MD [address] [place] [address] Assigned Heart and Vascular Provider 10/13/23 08/11/24 Rivka Stroud DO [address] [place] [address] Assigned Heart and Vascular Provider 08/12/24 Kimberly Sotelo PA-C [address] [place] [address] Physician Legal Specialist Cardiology 12/18/24 documented as of this encounter
--- OUTSIDE RECORDS SUMMARY | 2025-01-18 05:29 | XMS_ITS | Encounter Summary ---
Author Organization [place] Address [address] [place] [address]. [place] [address] Care Team Providers Care Older Adult Social Work Specialist Name Role Phone Laurita Duncan MD Primary Care Provider + Rivka Stroud DO Unavailable [phone] Rivka Stroud DO Unavailable [phone] Kimberly Sotelo PA-C Unavailable [phone] Encounter Details Date Type Department Care Team (Late st Contact Info) Description 12/13/2024 External Order Results [facility] [address] [place] [address] Lab, De Interface Social History Tobacco Use [...] on file Legal Sex Female 3:33 AM YARN COMBER Gender Identity Not on file Sexual Orientation Not on file documented as of this encounter Plan of Treatment Upcoming Encounters Date Type Department Care Team (Late st Contact Info) Description 01/20/2025 1:20 PM YARN COMBER Office Visit [facility] [address] [place] [address] Kimberly Sotelo PA-C [address] [place] [address] documented as of this encounter Procedures Procedure Name Priority Date/Time Associated Diagnosis Comments DIFFERENTIAL Routine 12/13/2024 10:30 PM CDT documented in this encounter Results * Manual Differential (12/13/2024 10:30 PM CDT) % Neutrophils (External) 59.9 42.0 - 72.0 % LABDE INTERFACE % Lymphocytes (External) 31.8 20 - 44 % LABDE INTERFACE % Monocytes (External) 6.3 0.0 - 11.0 % LABDE INTERFACE % Eosinophils (External) 1.8 0.0 - 7.0 % LABDE INTERFACE % Basophils (External) 0.3 0.0 - 3.0 % LABDE INTERFACE % Immature Granulocytes (External) 0.7 % LABDE INTERFACE Absolute Neutrophils (External) 3.42 1.7 - 7.0 K/uL LABDE INTERFACE Absolute Lymphocytes (External) 1.82 0.90 - 2.90 K/uL LABDE INTERFACE Absolute Monocytes (External) 0.40 0.00 - 0.90 K/UL LABDE INTERFACE Absolute Eosinophils (External) 0.06 0 - 0.50 K/uL LABDE INTERFACE Absolute Basophils (External) 0.02 0.00 - 30 K/uL LABDE INTERFACE Absolute Immature Granulocytes (External) 0.04 0.00 - 0.30 K/uL LABDE INTERFACE 12/13/2024 10:3 0 PM CDT Narrative PETE PFT - 01/08/2025 8:52 AM YARN COMBER Verified by Hernan Sellers on 01/08/2025. us De Interface Lab LAB - BLOOD ORDERABLES Edited R esult - Final PETE PFT LABDE INTERFACE documented in this encounter Visit Diagnoses Not on filedocumented in this encounter Care Teams Older Adult Social Work Specialist Relationship Specialty Start Date End Date Laurita Duncan MD [facility] [address] [place] [address] PCP - General Family Practice 10/18/17 Rivka Stroud DO [address] [place] [address] Physician Cardiovascular Disease 01/06/23 Rivka Stroud DO [address] [place] [address] Assigned Heart and Vascular Provider 08/12/24 Kimberly Sotelo PA-C [address] [place] [address] Physician Vice President Of Business Development Cardiology 12/18/24 documented as of this encounter
--- OUTSIDE RECORDS SUMMARY | 2025-01-18 05:29 | XMS_ITS | Encounter Summary ---
Author Organization [place] Address [facility] [place] [address] Care Team Providers Care Dielectric Press Operator Name Role Phone Laurita Duncan MD Primary Care Provider + Rivka Stroud DO Unavailable [phone] Rivka Stroud DO Unavailable [phone] Kimberly Sotelo PA-C Unavailable [phone] Reason for Visit * Reason Onset Date Comments Call Back 01/14/2025 Call back Encounter Details Date Type Department Care Team (Late st Contact Info) Description 01/14/2025 Telephone [facility] Heart [address] [place] [address] Kimberly Sotelo PA-C [address] [place], [place] [address] Call Back (Call back ) Social History Tobacco Use Types Packs/Day [...] on file Legal Sex Female 3:33 AM EDGE INKER HEELS Gender Identity Not on file Sexual Orientation Not on file documented as of this encounter Miscellaneous Notes * Telephone Encounter - Bandar Villalpando RN - 01/14/2025 2:43 PM CST Noted on appointment notes Bandar Villalpando RN on 01/14/2025 at 2:43 PM INKER HEELS * Telephone Encounter - Lurdes Delvalle - 01/14/2025 2:31 PM CST [facility] Call Center Phone Message May a detailed message be left on voicemail: yes Reason for Call: Other: Pt is requesting that during her appt on 01/20/2025 that she can call her daughter on the phone so that her daughter can be part of the appt as well. Action Taken: Other: cardiology Travel Screening: Not Applicable Thank you! [facility] INKER HEELS documented in this encounter Plan of Treatment Upcoming Encounters Date Type Department Care Team (Late st Contact Info) Description 01/20/2025 1:20 PM EDGE INKER HEELS Office Visit [facility] Heart [facility] [address] [facility] [address] [place] [phone] Kimberly Sotelo PA-C [address] [place] [address] documented as of this encounter Visit Diagnoses Not on filedocumented in this encounter Care Teams Dielectric Press Operator Relationship Specialty Start Date End Date Laurita Duncan MD [facility] [address] [place] [address] PCP - General Family Practice 10/18/17 Rivka Stroud DO [address] [place] [address] Physician Cardiovascular Disease 01/06/23 Rivka Stroud DO [address] [place] [address] Assigned Heart and Vascular Provider 08/12/24 Kimberly Sotelo PA-C [address] [address] Physician Dairy Chemist Cardiology 12/18/24 documented as of this encounter
--- OUTSIDE RECORDS SUMMARY | 2025-01-18 05:29 | XMS_ITS | Encounter Summary ---
Author Organization [place] Address [address] [place] [address]. [place] [address] Care Team Providers Care Director Case Name Role Phone Laurita Duncan MD Primary Care Provider + Rivka Stroud DO Unavailable [phone] Rivka Stroud DO Unavailable [phone] Kimberly Sotelo PA-C Unavailable [phone] Encounter Details Date Type Department Care Team (Late st Contact Info) Description 12/13/2024 External Order Results [facility] [address] [place] [address] Lab, De Interface Social History Tobacco Use [...] on file Legal Sex Female 3:33 AM PHLEBOTOMIST Gender Identity Not on file Sexual Orientation Not on file documented as of this encounter Plan of Treatment Upcoming Encounters Date Type Department Care Team (Late st Contact Info) Description 01/20/2025 1:20 PM PHLEBOTOMIST Office Visit [facility] [address] [place] [address] Kimberly Sotelo PA-C [address] [place] [address] documented as of this encounter Procedures Procedure Name Priority Date/Time Associated Diagnosis Comments EXTERNAL LAB RESULTS Routine 12/13/2024 10:30 PM CDT documented in this encounter Results * External Lab Results (12/13/2024 10:30 PM CDT) Troponin I (External) <0.01 0.01 - 0.04 NG/Ml LABDE INTERFACE 12/13/2024 10:3 0 PM CDT Narrative PETE PFT - 01/08/2025 8:52 AM PHLEBOTOMIST Verified by Hernan Sellers on 01/08/2025. us De Interface Lab LABORATORY Edited Result - Final PETE PFT LABDE INTERFACE documented in this encounter Visit Diagnoses Not on filedocumented in this encounter Care Teams Director Case Relationship Specialty Start Date End Date Laurita Duncan MD [address] [address] PCP - General Family Practice 10/18/17 Rivka Stroud DO [address] [place] [address] Physician Cardiovascular Disease 01/06/23 Rivka Stroud DO [address] [place] [address] Assigned Heart and Vascular Provider 08/12/24 Kimberly Sotelo PA-C [address] [id number] Physician Supervisor Plate Pasting Cardiology 12/18/24 documented as of this encounter
--- OUTSIDE RECORDS SUMMARY | 2025-01-18 05:29 | XMS_ITS | Encounter Summary ---
Author Organization [place] Address [facility] [place] [address] Care Team Providers Care Electronics Repair Technician Name Role Phone Laurita Duncan MD Primary Care Provider + Rivka Stroud DO Unavailable [phone] Rivka Stroud DO Unavailable [phone] Kimberly Sotelo PA-C Unavailable [phone] Reason for Visit * Reason Onset Date Comments Results 01/01/2025 Heart testing Encounter Details Date Type Department Care Team (Late st Contact Info) Description 01/01/2025 Telephone [facility] [address] [place] [address] Rivka Stroud DO [address] [facility] [address] [place] [address] Results (Heart testing) Social History Tobacco Use Types Packs/Day Years [...] on file Legal Sex Female 3:33 AM SHRIMPING BOAT CAPTAIN Gender Identity Not on file Sexual Orientation Not on file documented as of this encounter Miscellaneous Notes * Telephone Encounter - Prudence Bloom, RN - 01/01/2025 2:19 PM CST Noted Prudence Bloom RN on 01/01/2025 at 2:21 PM MPING BOAT CAPTAIN * Telephone Encounter - Noah Cherry - 01/01/2025 12:24 PM CST [facility] Call Center Phone Message May a detailed message be left on voicemail: yes Reason for Call: Other: Patient says she had some heart tests with [facility]. They asked her to let her cardiology team know. She is asking we get those test results from [facility]. Patient also had cardioversion done 2 weeks ago at [facility] and is waiting on zio results from them as well. Patient says she will have [facility] send results to us if we do not have access to them through Care Everywhere. Patient wanted to let us know where testing is located so we can get everything before her next appt 01/20. Action Taken: Other: Cardio Travel Screening: Not Applicable Thank you! [facility] MPING BOAT CAPTAIN documented in this encounter Plan of Treatment Upcoming Encounters Date Type Department Care Team (Late st Contact Info) Description 01/20/2025 1:20 PM SHRIMPING BOAT CAPTAIN Office Visit [facility] Heart [facility] [address] [place] [address] [address] [place] [phone] Kimberly Sotelo PA-C [address] [place] [address] documented as of this encounter Visit Diagnoses Not on filedocumented in this encounter Care Teams Electronics Repair Technician Relationship Specialty Start Date End Date Laurita Duncan MD [employer] [facility] [place] [address] [place] [address] PCP - General Family Practice 10/18/17 Rivka Stroud DO [address] [place] [address] Physician Cardiovascular Disease 01/06/23 Rivka Stroud DO [address] [place] [address] Assigned Heart and Vascular Provider 08/12/24 Kimberly Sotelo PA-C [address] [address] Physician Timber Cutter Cardiology 12/18/24 documented as of this encounter
--- OUTSIDE RECORDS SUMMARY | 2025-01-18 05:29 | XMS_ITS | Clinical Summary ---
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 [address] [facility] [address] [place] [address] Kimberly Sotelo PA-C Call Back (Call back ) 01/01/2025 Telephone [facility] [address] [facility] [address] [place] [address] Rivka Stroud DO Results (Heart testing) 12/13/2024 External Order Results [facility] [address] [place] [address] Lab, De Interface 12/13/2024 External Order Results [facility] [address] [place] [address] Lab, De Interface 12/13/2024 External Order Results [facility] [address] [place] [address] Lab, De Interface 12/13/2024 External Order Results [facility] [address] [place] [address] Lab, De Interface 12/13/2024 External Order Results [facility] [address] [place] [address] Lab, De Interface 12/13/2024 External Order Results [facility] [address] [place] [address] Lab, De Interface 11/22/2024 Telephone [facility] [address] [place] [phone] Rivka Stroud, Symptoms (Shortness of breath ) from Last [...] on file Legal Sex Female 3:33 AM PRINT DESIGNER Gender Identity Not on file Sexual Orientation Not on file Last Filed Vital Signs Vital Sign Reading Time Taken Comments Blood Pressure 142/70 08/05/2024 2:31 PM CDT Pulse 69 08/05/2024 2:31 PM CDT Temperature 36.8 C (98.3 F) 03/03/2023 6:46 AM PRINT DESIGNER Respiratory Rate 16 03/03/2023 2:00 PM PRINT DESIGNER Oxygen Saturation 97% 08/05/2024 12:23 PM CDT Inhaled Oxygen Concentration - - Weight 58.8 kg (129 lb 9.6 oz) 08/05/2024 12:23 PM CDT Height 165.1 cm (5' 5) 08/05/2024 12:23 PM CDT Body Mass Index 21.57 08/05/2024 12:23 PM CDT Plan of Treatment Upcoming Encounters Date Type Department Care Team (Late st Contact Info) Description 01/20/2025 1:20 PM PRINT DESIGNER Office Visit [facility] Heart [address] [place] [address] Kimberly Sotelo, PAJluisC [address] [place] [address] Health Maintenance Due Date Last Done Comments [...] (once per calendar year) 2024 03/31/2023, 01/31/2023 LIPID 03/03/2024 03/03/2023 DTAP/TDAP/TD VACCINE (2 - Td or Tdap) 06/12/2024 06/12/2014, 09/06/2004 COVID-19 VACCINE (6 - season) 2024 11/26/2021, 07/01/2021, 12/29/2020, Additional history exists INFLUENZA VACCINE (#1) 2024 , 12/28/2022, 12/20/2021, Additional history exists BMP 12/13/2025 12/13/2024, 02/20, 02/15/2023 MAMMO SCREENING 01/04/2026 01/05/2024, 12/21, 12/28/2022, Additional history exists DIABETES SCREENING 03/03/2026 03/03/2023, 02/15/2023 COLONOSCOPY 11/03/2027 11/02/2017, 10/21, 11/02/2017, Additional history exists DEXA 01/17/2038 01/17/2023 PNEUMOCOCCAL VACCINE 50+ YEARS Completed 10/07/2020, 02/25/2019 COLORECTAL CANCER SCREENING Discontinued HPV VACCINE (No Doses Required) Completed MENINGITIS VACCINE Aged Out No longer eligible based on patient's age to complete this topic Medical Devices Implanted Type Area Business Account Manager Device Identifier Shelf Expiration Date Model / Serial / Lot Stent Coronary Sabino Synergy Xd Mr [id number] - [id number] Implanted:Qty: 1 on 03/03/2023 at [facility] Stent Drug Eluting (SABINO) [employer] 12/27/2023 [id number] / / [id number] Stent Cor [place] 15x2.75mm [id number] - [id number] Implanted:Qty: 1 on 02/15/2023 at [facility] Stent [employer] 07/02/2023 [id number] / / [id number] Closure Angioseal 6fr [id number] - [id number] Implanted:Qty: 1 on 02/15/2023 at [facility] [employer] 05/21/2023 [id number] / / [id number] Procedures Procedure Name Priority Date/Time Associated Diagnosis Comments HOLTER MONITOR CARDIAC - HIM SCAN 12/28/2024 12:00 AM PRINT DESIGNER EKG CARDIAC - HIM SCAN 12/14/2024 12:00 AM CDT EKG CARDIAC - HIM SCAN 12/14/2024 12:00 AM CDT EKG CARDIAC - HIM SCAN 12/14/2024 12:00 AM CDT HOLTER MONITOR CARDIAC - HIM SCAN 12/14/2024 12:00 AM CDT EXTERNAL LAB RESULTS Routine 12/13/2024 10:30 PM CDT DIFFERENTIAL Routine 12/13/2024 10:30 PM CDT NT-PROBNP Routine 12/13/2024 10:30 PM CDT MAGNESIUM Routine 12/13/2024 10:30 PM CDT BASIC METABOLIC PANEL Routine 12/13/2024 10:30 PM CDT CBC WITH PLATELETS Routine 12/13/2024 10 :30 PM CDT LAB RESULT - HIM SCAN 12/13/2024 12:00 AM CDT EKG CARDIAC - HIM SCAN 12/13/2024 12:00 AM CDT EKG CARDIAC - HIM SCAN 12/13/2024 12:00 AM CDT EKG CARDIAC - HIM SCAN 12/13/2024 12:00 AM CDT EKG CARDIAC - HIM SCAN 12/13/2024 12:00 AM CDT EKG CARDIAC - HIM SCAN 12/13/2024 12:00 AM CDT XRAY IMAGING - HIM SCAN 12/13/2024 12:00 AM CDT XRAY IMAGING - HIM SCAN 12/13/2024 12:00 AM CDT BASIC METABOLIC PANEL STAT 03/03/2023 7:00 AM PRINT DESIGNER LIPID PROFILE STAT Add-on 03/03/2023 7:00 AM PRINT DESIGNER MAMMOGRAM - HIM SCAN 11/14/2017 12:00 AM CDT COLONOSCOPY Routine 11/02/2017 9:28 AM CDT from Last 3 Months or Most Recently Relevant to Health Maintenance Results * Holter Monitor Cardiac - HIM Scan (12/28/2024 12:00 AM PRINT DESIGNER) Only the most recent of2 resultswithin the time period is included. 12/28/2024 us Provider Outside ECG ORDERABLES Final Result * EKG Cardiac - HIM Scan (12/14/2024 12:00 AM CDT) Only the most recent of8 resultswithin the time period is included. 12/14/2024 us Provider Outside ECG ORDERABLES Final Result * External Lab Results (12/13/2024 10:30 PM CDT) Troponin I (External) <0.01 0.01 - 0.04 NG/Ml LABDE INTERFACE 12/13/2024 10:3 0 PM CDT Narrative BREEZE PFT - 01/08/2025 8:52 AM PRINT DESIGNER Verified by Hernan Sellers on 01/08/2025. us De Interface Lab LABORATORY Edited Result - Final BREEZE PFT LABDE INTERFACE * (ABNORMAL) NT-proBNP (12/13/2024 10:30 PM CDT) N-Terminal Pro BNP (External) 3,370(H) <300 pg/mL LABDE INTERFACE 12/13/2024 10:3 0 PM CDT Narrative BREEZE PFT - 01/08/2025 8:52 AM PRINT DESIGNER Verified by Hernan Sellers on 01/08/2025. us De Interface Lab LAB - BLOOD ORDERABLES Edited R esult - Final MARKEZE PFT LABDE INTERFACE * Magnesium (12/13/2024 10:30 PM CDT) Magnesium (External) 1.7 1.5 - 2.6 mg/dl LABDE INTERFACE 12/13/2024 10:3 0 PM CDT Narrative MARKEZE PFT - 01/08/2025 8:52 AM PRINT DESIGNER Verified by Hernan Sellers on 01/08/2025. us De Interface Lab LAB - BLOOD ORDERABLES Edited [facility] Performing Organization Address [facility] Co de Phone Number MARKEZE PFT LABDE INTERFACE * Manual Differential (12/13/2024 10:30 PM CDT) [...] INTERFACE 12/13/2024 10:3 0 PM CDT Narrative MARKEZE PFT - 01/08/2025 8:52 AM PRINT DESIGNER Verified by Hernan Sellers on 01/08/2025. De Interface Lab LAB - BLOOD ORDERABLES Edited [facility] Performing Organization Address [facility] Co de Phone Number PETE PFT LABDE INTERFACE * (ABNORMAL) Basic metabolic panel (12/13/2024 10:30 PM CDT) Only the most recent of2 resultswithin the time period is included. Sodium (External) 133(L) 135 - 149 mmol/L LABDE INTERFACE Potassium (External) 3.7 3.6 - 5.1 mmol/L LABDE INTERFACE Chloride (External) 110 96 - 114 mmol/L LABDE INTERFACE CO2 (External) 24 20 - 32 mmol/L LABDE INTERFACE Anion Gap (External) 1(L) 7 - 15 mEq/L LABDE INTERFACE Urea Nitrogen (External) 19 7 - 30 mg/dL LABDE INTERFACE Creatinine (External) 0.9 0.5 - 1.5 mg/dL LABDE INTERFACE GFR Estimated (External) 68 ml/min LABDE INTERFACE Calcium (External) 10.1 8.4 - 10.6 mg/dL LABDE INTERFACE Glucose (External) 194(H) 60 - 115 mg/dL LABDE INTERFACE 12/13/2024 10:3 0 PM CDT Narrative PETE PFT - 01/08/2025 8:52 AM PRINT DESIGNER Verified by Hernan Sellers on 01/08/2025. De Interface Lab LAB - BLOOD ORDERABLES Edited [facility] Performing Organization Address [facility] de Phone Number PETE PFT LABDE INTERFACE * CBC with platelets (12/13/2024 10:30 PM CDT) WBC Count (External) 5.72 4.50 - 11.00 K/uL LABDE INTERFACE RBC Count (External) 4.72 4.00 - 5.20 m/uL LABDE INTERFACE Hemoglobin (External) 13.8 12.0 - 16.0 gm/dL LABDE INTERFACE Hematocrit (External) 42.7 33.0 - 51.0 % LABDE INTERFACE MCV (External) 91 80 - 100 U/L LABDE INTERFACE MCH (External) 29 26 - 34 pg LABD E INTERFACE MCHC (External) 32 22 - 36 gm/dL LABDE INTERFACE Platelet Count (External) 215 140 - 440 K/uL LABDE INTERFACE RDW (External) 12.9 11.5 - 15.5 % LABDE INTERFACE 12/13/2024 10:3 0 PM CDT Narrative PETE PFT - 01/08/2025 8:52 AM PRINT DESIGNER Verified by Hernan Sellers on 01/08/2025. us De Interface Lab LAB - BLOOD ORDERABLES Edited R esult - Final PETE PFT LABDE INTERFACE * Lab Result - HIM Scan (12/13/2024 12:00 AM CDT) 12/13/2024 us Provider Outside NON-BEAKER LAB TESTING Final Result * Xray Imaging - HIM Scan (12/13/2024 12:00 AM CDT) Only the most recent of2 resultswithin the time period is included. Anatomical Region Laterality Modality Other 12/13/2024 us Provider Outside [facility] ORDERABL ES Final Result * Lipid Profile (03/03/2023 7:00 AM PRINT DESIGNER) Cholesterol 119 <200 mg/dL 03/04/2023 8:43 AM PRINT DESIGNER [facility] Triglycerides 58 <150 mg/dL 03/04/2023 8:43 AM PRINT DESIGNER [facility] Direct Measure HDL 65 >=50 mg/dL 2023 8:43 AM PRINT DESIGNER [facility] LDL Cholesterol Calculated 42 <=100 mg/dL 03/04/2023 8:43 AM PRINT DESIGNER [facility] Non HDL Cholesterol 54 <130 mg/dL 03/04/2023 8:43 AM PRINT DESIGNER [facility] Blood BLOOD SPECIMEN / Unknown Venipuncture / Unknown 03/03/2023 7:00 AM PRINT DESIGNER 03/03/2023 7:02 AM PRINT DESIGNER Narrative [facility] - 03/04/2023 8:43 AM PRINT DESIGNER Cholesterol Desirable: <200 mg/dL Triglycerides Normal: Less [...] than or equal to 220 mg/dL us Furnace Repairer Helper Invasive MD LAB - BLOOD ORDERABLES Final Result LABORATORY [facility] Lab [address] [facility], [address] [id number] [phone] * MAMMOGRAM - HIM SCAN (11/14/2017 12:00 AM CDT) Anatomical Region Laterality Modality Other 11/14/2017 us Provider Outside IMG MAMMOGRAPHY ORDERABLES Tami l Result * COLONOSCOPY (11/02/2017 9:28 AM CDT) COLONOSCOPY [facility] Patient Name: Aleshia Hurtado Procedure Date: 11/02/2017 [...] The [employer] Peds Colonoscope Model #PCF-H190L, [place]#138, SN#[id number] was introduced through the anus and advanced [...] malignant neoplasm of colon CPT copyright 2017 [employer]. All rights reserved. The codes documented in this report are preliminary and upon certified professional coder review may be revised to meet current [...] AM RADIOLOGY RESULTS 11/02/2017 9:28 AM CDT us Laurita Duncan MD PROCEDURES Final Re sult RADIOLOGY RESULTS from Last 3 Months or Most Recently Relevant to Health Maintenance Insurance [employer] MEDICARE ADVANTAGE [employer] MEDICARE ADVANTAGE Care Teams Element Winding Machine Tender Relationship Specialty Start Date End Date Laurita Duncan MD [facility] [address] [place] [address] PCP - General Family Practice 10/18/17 Rivka Stroud DO [address] [facility] [address] [place] [address] Physician Cardiovascular Disease 01/06/23 Rivka Stroud DO [address] [place] [address] Assigned Heart and Vascular Provider 08/12/24 Kimberly Sotelo, EDD [address] [address] Physician Ceramic Artist Cardiology 12/18/24
--- OUTSIDE RECORDS SUMMARY | 2025-01-18 05:29 | XMS_ITS | Encounter Summary ---
Author Organization [place] Address [address] [place] [address]. [place] [address] Care Team Providers Care Construction Economist Name Role Phone Laurita Duncan MD Primary Care Provider + Rivka Stroud DO Unavailable [phone] Rivka Stroud DO Unavailable [phone] Kimberly Sotelo PA-C Unavailable +[phone] Encounter Details Date Type Department Care Team (Late st Contact Info) Description 12/13/2024 External Order Results [facility] [address] [place] [address] Lab, De Interface Social History Tobacco Use [...] on file Legal Sex Female 3:33 AM CABIN CREW Gender Identity Not on file Sexual Orientation Not on file documented as of this encounter Plan of Treatment Upcoming Encounters Date Type Department Care Team (Late st Contact Info) Description 01/20/2025 1:20 PM CABIN CREW Office Visit [facility] [address] [place] [address] Kimberly Sotelo PA-C [address] [address] documented as of this encounter Procedures Procedure Name Priority Date/Time Associated Diagnosis Comments MAGNESIUM Routine 12/13/2024 10:30 PM CDT documented in this encounter Results * Magnesium (12/13/2024 10:30 PM CDT) Magnesium (External) 1.7 1.5 - 2.6 mg/dl LABDE INTERFACE 12/13/2024 10:3 0 PM CDT Narrative PETE PFT - 01/08/2025 8:52 AM CABIN CREW Verified by Hernan Sellers on 01/08/2025. us De Interface Lab LAB - BLOOD ORDERABLES Edited R esult - Final PETE PFT LABDE INTERFACE documented in this encounter Visit Diagnoses Not on filedocumented in this encounter Care Teams Construction Economist Relationship Specialty Start Date End Date Laurita Duncan MD [address] [address] PCP - General Family Practice 10/18/17 Rivka Stroud DO [address] [place] [address] Physician Cardiovascular Disease 01/06/23 Rivka Stroud DO [address] [place] [address] Assigned Heart and Vascular Provider 08/12/24 Kimberly Sotelo PA-C [address] [address] Physician Intermediate Designer Cardiology 12/18/24 documented as of this encounter
--- OUTSIDE RECORDS SUMMARY | 2025-01-18 05:29 | XMS_ITS | Clinical Summary ---
Author Organization [employer] [facility] Address [address] [place] [address] Care Team Providers Care Health Clinician Name Role Phone Saurabh Duncan MD Primary Care Provider + Allergies Active Allergy Reactions Criticality Noted Date Comments Adhesive Rash 06/05/2023 Reddness/itching of the skin from stickers at [facility] Codeine 03/19/2010 Sulfa (Sulfonamide Antibiotics) 03/19/2010 Medications calcium with vitamin D3 (OS-MARISELA 500 + D) tabletIndication s:Osteopenia Take 1 tablet by mouth once daily with a meal. 1 tablet 0 06/13/19 15 Active latanoprost (XALATAN) 0.005 % ophthalmic solution 07/02/19 21 Active medication order composerIndicati ons:Foot pain, left Lace up ankle support brace 1 Each 10/13/19 21 Active ticagrelor (BRILINTA) 90 mg tablet Take 90 mg by mouth two times daily. 08/07/19 24 Active rivaroxaban (XARELTO) 20 mg tablet Take 20 mg by mouth once daily with evening meal. 06/05/19 24 Active rosuvastatin (CRESTOR) 10 mg tablet Take 10 mg by mouth once daily with evening meal. 04/24/19 24 Active nitroglycerin (NITROSTAT) 0.[address] 0.4 mg under the tongue every 5 minutes if needed. 02/16/20 23 Active lisinopriL (PRINIVIL; ZESTRIL) 10 mg tabletIndication s:HTN (hypertension) Take 1 Tablet (10 mg) by mouth two times daily. 08/11/19 24 Active metoprolol succinate 25 mg Sustained-Releas e tablet Take 25 mg by mouth two times daily. 04/15/19 25 Active alendronate (FOSAMAX) 70 mg tabletIndication s:Osteopenia, unspecified location Take 1 Tablet (70 mg) by mouth once a week in the morning. Take on empty stomach with full glass of water. Do not lie down for 1 hr. 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 90 Tablet 12/31/19 25 Active amoxicillin-clav ulanate (AUGMENTIN) 875-125 mg tabletIndication s:Bronchitis Take 1 Tablet by mouth two times daily with meals. 20 Tablet 01/04/20 25 Active cephalexin 500 mg capsuleIndicatio ns:Cellulitis of skin Take 1 Capsule (500 mg) by mouth three times daily. 30 Capsule 01/11/20 25 Active clopidogreL (PLAVIX) 75 mg tabletIndication s:CAD in cahuilla artery Take 1 Tablet (75 mg) by mouth once daily in the morning. 30 Tablet 3 12/28/19 25 025 Discontin ued(*Avai lability/ Formulary change/Co st of medicatio n) Active Problems Problem Noted Date Diagnosed Date Cardiomyopathy 01/03/2025 Fracture of right elbow 01/03/2025 Paroxysmal tachycardia 01/03/2025 Overview (01/03/2025): AI Summary: As of 06/20/24: The patient has a history of paroxysmal supraventricular tachycardia (SVT), first noted on 01/18/2023. On 01/31/2023, SVT was listed as an encounter diagnosis. An echocardiogram was performed on 05/11/2023 due to SVT and an abnormal electrocardiogram. 06/20/24: HR 68 /min 03/03/23: K 4.2 mmol/L On meds: lisinopril, metoprolol succinate, nitroglycerin, rivaroxaban, rosuvastatin Recent encounter dx: 05/09/24: MyC Refill - Cardiology, [facility] (from [place]) 04/08/24: MyC Refill - Cardiology, [facility] (from [place]) 02/02/24: Refill - Cardiology, [facility] (from [place]) 08/05/23: MyC Refill - Cardiology, [facility] (from [place]) 05/11/23: Hospital Encounter - Cardiology, [facility] (from [place]) Recent studies: 05/11/23: Echocardiogram Complete by Ashvin Stroud DO (from [place]) ... [-] Name: ALESHIA PALMER : 1950 Study Date: 05/11/2023 08:51 AM Age: 72 yrs Gender: Female Patient Location: [facility] Reason For Study: SVT (supraventricular tachycardia) (H24), Abnormal electrocardio Ordering Physician: ASHVIN STROUD Referring Physician: ASHVIN STROUD Performed By: Tequila Barrett 01/17/23: Holter Monitor - O FINAL REPORT ... [+] Ventricular Tachycardia (4 beats or more) Episodes ... [+] Supraventricular Tachycardia (4 beats or more) [address]. ... [+] QRS morphology changes were present due to possible Rate Related Bundle Branch Block.1 run of Ventricular Tachycardia occurred lasting 5 beats with ... [+] [address] Supraventricular Tachycardia runs occurred, the run with the fastest interval lasting 6 beats with a max rate of 176 bpm, the longest lasting 34.6 secs with an avg rate of 102 bpm. ... [-] Some episodes of Supraventricular Tachycardia may be possible Atrial Tachycardia with variable block. Recent notes: 06/20/24: Progress Notes by Casandra Eli MD ... [+] ? Paroxysmal SVT (supraventricular tachycardia) () 01/18/2023 08/09/23: Progress Notes by Saurabh Duncan MD ... [+] ? Paroxysmal SVT (supraventricular tachycardia) (HC) I47.10 01/31/23: Progress Notes by Ashvin Stroud DO (from [place]) ... [-] SVT (supraventricular tachycardia) 01/31/23: Consult - [facility], HYPERTENSION/SVT, 01/31/2023 by SAURABH DUNCAN ... [+] * SVT (supraventricular tachycardia) Paroxysmal atrial fibrillation 12/27/2024 Overview (12/27/2024): 11/2024 ED afib RVR cardioverted. Zio 05/2023 <1%; rate controlled. Started on Eliquis; metoprolol Ischemic cardiomyopathy 12/27/2024 Overview (12/27/2024): Complex CAD. EF echo 40-45% 06/2024. 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 She underwent a complex PCI using a 2.75 x 15 mm drug-eluting stent leaving 70% residual stenosis postintervention. She returned to the Care Program Director on 03/03/2023 as part of a staged repeat intervention with intracoronary lithotripsy and laser atherectomy followed by a 3.5 x 20 mm MARIE proximal to and overlapping the original stent. Benign essential hypertension 03/31/2023 Hyperlipidemia with target LDL less than 70 10/2023 PAC (premature atrial contraction) 03/31/2023 SVT (supraventricular tachycardia) 03/31/2023 Percutaneous transluminal coronary angioplasty s tatus 02/15/2023 Paroxysmal SVT (supraventricular tachycardia) Overview (12/27/2024): Zio 05/2023 5000 episodes on metoprolol seen by Michael EP. Zio 12/2022; >10 000 episodes History of COVID-19 07/26/2021 Overview (07/26/2021): Onset 07/15/2021 HTN (hypertension) 06/12/2014 Arthritis 04/09/2010 Osteopenia 04/09/2010 Overview (06/12/2014): 01.02.2007 normal BMD of the spine; mild penia of the left hip. Went off the fosamax in 2010 with normal BMD and mild penia of hip improved. Plan to recheck in 2015. Resolved Problems Problem Noted Date Diagnosed Date Resolved Date Lymphoma 04/09/2010 04/09/2010 Environmental allergies 04/09/201005/22 Hypertension 04/09/2010 05/25/2011 Encounters Date Type Department Care Team Description 01/18/2025 Nurse Triage [address] [address] Saurabh Duncan MD Cough 01/10/2025 8:30 AM STAFF AUDITOR Office Visit [address] [address] Jeffrey Sidhu MD Leg Pain/problem (Patient is being seen for left sore.) 01/10/2025 Travel 01/09/[address] [address] Saurabh Duncan MD Results 01/06/[address] [facility] [address] [place] [address] Tiffany Rosales 2 scans: (2-Ord) I-RHYTHM, ZIO MONITOR FINAL REPORT, 12/14/2024 01/03/2025 8:30 AM STAFF AUDITOR Office Visit [address] [address] Jeffrey Sidhu MD Viral Syndrome (Patient is being seen chest & lung congestion.) 01/03/2025 Travel 01/01/[address] [address] Saurabh Duncan MD Form (results mailed) 12/30/[address] [address] Saurabh Duncan MD Results 12/30/[address] [address] Saurabh Duncan MD Refill Request (clopidogreL (PLAVIX) 75 mg tablet) 12/28/2024 Orders Only [facility] Scanner 1 scan: (1-Ord) [facility], 12/28/2024 12/27/2024 12:45 PM STAFF AUDITOR Office Visit [address] [address] Saurabh Duncan MD Follow Up (ER- 12/13/24, [place], DIFFICULTY BREATHING/HEART PALPITATIONS ); Pain (Left ribcage pain, wrist pain) 12/27/[address] [address] Saurabh Duncan MD Questions (Pharmacy clarification ) 12/27/2024 Travel 12/24/2024 Travel 12/14/2024 Orders Only [facility] Scanner 1 scan: (1-Ord) [facility], 12/14/2024 12/13/2024 Orders Only [facility] Scanner 1 scan: (1-Ord) [facility], 12/13/2024 12/13/2024 Orders Only [facility] Scanner 1 scan: (1-Ord) [facility], MULTIPLE LABS, 12/13/2024 12/13/2024 Orders Only [facility] Scanner 1 scan: (1-Ord) [place], CHEST 1V, 12/13/2024 from Last 3 Months Immunizations Immunization Administration Dates Next Due COVID-19 vaccine ([employer]-Bio NTech 30mcg/0.3mL) 12YO+ BIVALENT PF, MDV 11/26/2021 COVID-19 vaccine ([employer] NTech 30mcg/0.3mL) PF, MDV 12/29/2020,05/19/2020,04/28/2020 Influenza, IIV3 [...] s/p thyroide ctomy; benign Heart Disease Father PA during surg mikael Hypertension Father Stroke Father had a brain sergio or Emphysema Maternal Grandmother Hypertension Mother Heart attack Paternal Grandfather Dementia Paternal Grandmother Hypertension Sister 1 Christie severe Heart Disease Sister 2 Carly ACID/pacemaker , silent PA Hypertension Sister 2 Carly Hypertension Sister 3 [...] Never Smokeless Tobacco: Never Tobacco Cessation:Counseling Given: No Alcohol Use Standard Drinks/Week Comments No 0 (1 standard drink = 0.6 oz pur e alcohol) PHQ-2 Answer Date Recorded PHQ-2 TOTAL SCORE 0 06/20/2024 Social Connections Answer Date Recorded Do you often feel lonely or isolated from those around you? 0 01/10/2025 Alcohol Use Answer Date Recorded How often do you have a drink containing alcohol ? 0 01/10/2025 How many drinks containing a lcohol do you have on a typical day when you are drinking? 0 01/10/2025 How often do you have five or more drinks on one occasion? 0 01/10/2025 Financial Resource Strain Answer Date R ecorded Difficulty of Paying Living Expenses 3 12/27/2024 Difficulty of Paying Living Expenses Not on file 12/27/2024 Food Insecurity Answer Date Recorded Do you worry your food will run out before you are able to buy more? 1 01/10/2025 Transportation Needs Answer Date Record ed Does lack of transportation keep you from medica l appointments? 1 01/10/2025 Does lack of transportation keep you from work, meetings or getting things that you need? 1 01/10/2025 Housing Stability Answer Date Recorded What is your housing situation today? 1 01/10/2025 Utilities Answer Date Recorded Do you have trouble paying f or utilities (for example, heat, electricity, water, phone)? 1 01/10/2025 Comments No Sex and Gender Information Value Date Recorded Sex Assigned at Not on file Legal Sex Female 7:53 AM STAFF AUDITOR Gender Identity Not on file Sexual Orientation [...] Sign Reading Time Taken Comments Blood Pressure 134/80 01/10/2025 8:24 AM STAFF AUDITOR Pulse 89 01/10/2025 8:24 AM STAFF AUDITOR Temperature 36.6 C (97.9 F) 06/20/2024 8:27 AM CDT Respiratory Rate 14 04/22/2015 9:20 AM STAFF AUDITOR Oxygen Saturation 95% 01/10/2025 8:24 AM STAFF AUDITOR Inhaled Oxygen Concentration - - Weight 61 kg (134 lb 6.4 oz) 01/10/2025 8:24 AM STAFF AUDITOR Height 163.2 cm (5' 4.25) 01/10/2025 8:24 AM CS T Body Mass Index 22.89 01/10/2025 8:24 AM STAFF AUDITOR Plan of Treatment Upcoming Encounters Date Type Department Care Team (Late st Contact Info) Description 01/31/2025 2:00 PM STAFF AUDITOR Office Visit [facility] [address] [place] [address] [place] [address] [place] [address] Health Maintenance Due Date Last Done Comments Hepatitis C screening for age 18-79 07/02/1969 RSV vaccine for adults or (1 - Risk 50-74 years 1-dose series) 07/02/2001 Zoster (shingles) series for age 50+ (1 of 2) 07/02/2001 Medicare Wellness for age 65+ 12/29/2023 12/28/2022, 12/20/2021, 10/07/2020, Additional history exists Tetanus booster 06/12/2024 06/12/2014, 09/06/2004 COVID-19 vaccine series ( season) 2024 11/26/2021, 07/01/2021, 12/29/2020, Additional history exists Influenza Vaccine (#1) 2024 , 12/28/2022, 12/20/2021, Additional history exists Mammogram for age 45-75 01/04/2025 01/05/20, 12/28/2022, 12/23/2021, Additional history exists Depression screening for age 12+ 06/21/2025 06/21/2024, 06/20/2024, 12/28/2022, Additional history exists BMI (ht and wt on same day) for age 18+ 01/10/2026 01/10/2025, 01/03/2025, 08/09/2023, Additional history exists Colonoscopy through age 75 [...] Procedure Name Priority Date/Time Associated Diagnosis Comments SCAN-HOLTER MONITOR 12/28/2024 12:00 AM STAFF AUDITOR PRO-BNP Routine 12/27/2024 1:36 PM STAFF AUDITOR Paroxysmal atrial fibrillation (HC) Paroxysmal SVT (supraventricular tachycardia) (HC) Dyspnea on exertion SCAN-ELECTROCARDIO GRAM EKG 12/14/2024 12:00 AM CDT EXTENDED HOLTER Routine 12/14/2024 12:00 AM CDT Paroxysmal atrial fibrillation (HC) SCAN-ELECTROCARDIO GRAM EKG 12/13/2024 12:00 AM CDT SCAN-LABORATORY REPORT 12/13/2024 12:00 AM CDT SCAN-RADIOLOGY REPORT 12/13/2024 12:00 AM CDT LIPID PANEL W REFLEX MEASURED LDL Routine 09/12/2024 9:50 AM CDT HTN (hypertension) CAD in cahuilla artery XR MAMMO JUSTIN BILAT SCREEN Routine 01/05/2024 1:33 PM STAFF AUDITOR Screening breast examination XR DXA BONE DENSITY 2 SITES AXIAL Routine 01/17/2023 2:15 PM STAFF AUDITOR Osteopenia, unspecified location Post-menopausal SCAN-COLONOSCOPY 11/02/2017 12:0 0 AM CDT from Last 3 Months or Most Recently Relevant to Health Maintenance Results * SCAN-HOLTER MONITOR (12/28/2024 12:00 AM STAFF AUDITOR) us Scanner OTHER Final Result * (ABNORMAL) PRO-BNP (12/27/2024 1:36 PM STAFF AUDITOR) NT PROBNP 3830(H) <125 pg/mL 12/28/2024 12:07 PM STAFF AUDITOR [facility] Blood BLOOD SPECIMEN / Unknown [facility] / Unknown 12/27/2024 1:36 PM STAFF AUDITOR 12/27/2024 1:37 PM STAFF AUDITOR Saurabh Duncan MD SEND OUTS Final Re sult [facility] [address] [place] [address], [place] [phone] * EXTENDED HOLTER (12/14/2024 12:00 AM CDT) us [facility] ORD Edited Resu lt - Final * SCAN-ELECTROCARDIOGRAM EKG (12/14/2024 12:00 AM CDT) Only the most recent of2 resultswithin the time period is included. us Scanner OTHER Final Result * SCAN-RADIOLOGY REPORT (12/13/2024 12:00 AM CDT) Anatomical Region Laterality Modality Other us Scanner OTHER Final Result * SCAN-LABORATORY REPORT (12/13/2024 12:00 AM CDT) us Scanner OTHER Final Result * LIPID PANEL W REFLEX MEASURED LDL (09/12/2024 9:50 AM CDT) CHOLESTEROL, TOTAL 119 <200 mg/dL 09/13/2024 4:54 AM CDT [facility] TRIGLYCERIDES 80 <150 mg/dL 09/13/2024 4:54 AM CDT [facility] HDL CHOLESTEROL 65 > OR = 50 mg/dL 09/13/2024 4:54 AM CDT [facility] NON HDL CHOLESTEROL 54 <130 mg/dL (calc) 09/13/2024 4:54 AM CDT [facility] Comment: For patients with diabetes plus 1 major ASCVD risk factor, treating to a non-HDL-C goal of <100 mg/dL (LDL-C of <70 mg/dL) is considered a therapeutic option. CHOL/HDLC RATIO 1.8 <5.0 (calc) 09/13/2024 4:54 AM CDT [facility] LDL-CHOLESTEROL 38 mg/dL (calc) 09/13/2024 4:54 AM CDT [facility] Comment: Reference range: <100 Desirable range <100 mg/dL for primary prevention; <70 mg/dL for patients with CHD or diabetic patients with > or = 2 CHD risk factors. LDL-C is now calculated using the Harman calculation, which is a validated novel method providing better accuracy than the Friedewald equation in the estimation of LDL-C. Ricky BLANCO et al. ROBERT. 2013;310(19): 6282-8410 (http://education.[employer]/faq/NKM988) Blood BLOOD SPECIMEN / Unknown [facility] / Unknown 09/12/2024 9:50 AM CDT 09/12/2024 9:50 AM CDT us Saurabh Duncan MD CHEMISTRY Final Re sult [facility] [id number] [place] [address], * XR MAMMO JUSTIN BILAT SCREEN (01/05/2024 1:33 PM STAFF AUDITOR) Anatomical Region Laterality Modality BREASTS, Breast Left, Breast Right Bilateral Mammography 01/05/2024 1:33 PM STAFF AUDITOR Impressions 01/08/2024 8:52 AM STAFF AUDITOR IMPRESSION: ACR BI-RADS 1: Negative Recommended follow-up: [...] health insurance. Recommendations are based on the [employer] Appropriateness Criteria. Patients with a BI-RADS category of 0 should follow the recommendations for further evaluation before considering supplemental screening. Narrative 01/08/2024 8:52 AM STAFF AUDITOR EXAM: MAMMOGRAM SCREENING JUSTIN BILATERAL LOCATION: [facility] DATE: 01/05/2024 INDICATION: Asymptomatic. Screening Mammogram. COMPARISON: 12/28/22, 12/23/21 BREAST DENSITY: The breasts are heterogeneously dense, which may obscure small masses. FINDINGS: Tomosynthesis craniocaudal and mediolateral oblique views were obtained. No concerning mammographic findings. Procedure Note Duncan Boucher MD - 01/08/2024 EXAM: MAMMOGRAM SCREENING JUSTIN BILATERAL LOCATION: [facility] DATE: 01/05/2024 INDICATION: Asymptomatic. Screening Mammogram. COMPARISON: [...] is 12.9% for women born in the . For patients with a lifetime breast cancer [...] health insurance. Recommendations are based on the [employer] Appropriateness Criteria. Patients with a BI-RADS category of 0 should follow the recommendations for further evaluation before considering supplemental screening. Saurabh Duncan MD MAMMO Final Re sult * XR DXA BONE DENSITY 2 SITES AXIAL (01/17/2023 2:15 PM STAFF AUDITOR) Anatomical Region Laterality Modality Spine, HIPS, HIPL, HIPR Other 01/17/2023 2:15 PM STAFF AUDITOR Impressions 01/17/2023 3:44 PM STAFF AUDITOR IMPRESSION: Low bone density (OSTEOPENIA). T score meets the WHO criteria for low bone density (osteopenia) at one or more measured sites. The risk of osteoporotic fracture increases approximately two-fold for each standard deviation decrease in T-score. Narrative 01/17/2023 3:44 PM STAFF AUDITOR EXAM: BONE DENSITY LOCATION: [facility] [place] DATE: 01/17/2023 INDICATION: Other specified disorders of [...] MD - 01/17/2023 EXAM: BONE DENSITY LOCATION: [facility] [place] DATE: 01/17/2023 INDICATION: Other specified disorders of [...] each standard deviation decrease in T-score. us Saurabh Duncan MD DEXA Final Re sult * SCAN-COLONOSCOPY (11/02/2017 12:00 AM CDT) us Scanner OTHER Final Result from Last 3 Months or Most Recently Relevant to Health Maintenance Insurance [employer] HB ONLY MEDICARE PART B HB ONLY [facility] Care Teams Health Clinician Relationship Specialty Start Date End Date Saurabh Duncan MD PCP - General 06/15/09
--- OUTSIDE RECORDS SUMMARY | 2025-01-18 05:29 | XMS_ITS | Encounter Summary ---
Author Organization [facility] Address [address] [place] [address]. [place] [address] Care Team Providers Care Energy Technician Name Role Phone Laurita Duncan MD Primary Care Provider + Rivka Stroud DO Unavailable + [phone] William Ordoñez MD Unavailable [phone] Rivka Stroud DO Unavailable [phone] Kimberly Sotelo PA-C Unavailable [phone] Reason for Visit * Reason Onset Date Comments Call to schedule test 07/26/2024 NM Stress test in [place] Encounter Details Date Type Department Care Team (Late st Contact Info) Description 07/26/[address] [facility] [address] [place] [address] Rivka Stroud DO [address] [facility] [address] [place], [place] [address] Call to schedule test (NM Stress test in [place] ) Social History Tobacco Use Types Packs/Day [...] on file Legal Sex Female 3:33 AM FLASK CARRIER Gender Identity Not on file Sexual Orientation Not on file documented as of this encounter Miscellaneous Notes * Telephone Encounter - Heidi Cespedes - 07/26/2024 12:05 PM CDT [facility] Call Center Phone Message May a detailed message be left on voicemail: yes Reason for Call: Other: Please call the patient to help schedule the NM stress test in [place] Action Taken: Other: Cardiology Travel Screening: Not Applicable Thank you! Special[facility] Date of Service: documented in this encounter Plan of Treatment Upcoming Encounters Date Type Department Care Team (Late st Contact Info) Description 01/20/2025 1:20 PM FLASK CARRIER Office Visit [facility] [address] [facility] [address] [place] [id number] Kimberly Sotelo PA-C [address] [place] [address] documented as of this encounter Visit Diagnoses Not on filedocumented in this encounter Care Teams Energy Technician Relationship Specialty Start Date End Date Laurita Duncan MD [facility] [id number] [place] [address] PCP - General Family Practice 10/18/17 Rivka Stroud DO [address] [place] [address] Physician Cardiovascular Disease 01/06/23 William Ordoñez MD [address] [place] [address] Assigned Heart and Vascular Provider 10/13/23 08/11/24 Rivka Stroud DO [address] [place] [address] Assigned Heart and Vascular Provider 08/12/24 Kimberly Sotelo, EDD [address] [address] Physician Molder Feeder Cardiology 12/18/24 documented as of this encounter
--- OUTSIDE RECORDS SUMMARY | 2025-01-18 05:29 | XMS_ITS | Encounter Summary ---
Author Organization [place] Address [address] [place] [address]. [place] [address] Care Team Providers Care Insurance Claims Examiner Name Role Phone Laurita Duncan MD Primary Care Provider + Rivka Stroud DO Unavailable [phone] Rivka Stroud DO Unavailable [phone] Kimberly Sotelo PA-C Unavailable [phone] Encounter Details Date Type Department Care Team (Late st Contact Info) Description 12/13/2024 External Order Results [facility] [address] [place] [address] Lab, De Interface Social History Tobacco Use [...] on file Legal Sex Female 3:33 AM APPLICATION DESIGNER Gender Identity Not on file Sexual Orientation Not on file documented as of this encounter Plan of Treatment Upcoming Encounters Date Type Department Care Team (Late st Contact Info) Description 01/20/2025 1:20 PM APPLICATION DESIGNER Office Visit [facility] [address] [place] [address] Kimberly Sotelo PA-C [address] [place] [address] documented as of this encounter Procedures Procedure Name Priority Date/Time Associated Diagnosis Comments BASIC METABOLIC PANEL Routine 12/13/2024 10:30 PM CDT documented in this encounter Results * (ABNORMAL) Basic metabolic panel (12/13/2024 10:30 PM CDT) Sodium (External) 133(L) 135 - 149 mmol/L [...] Narrative PETE PFT - 01/08/2025 8:52 AM APPLICATION DESIGNER Verified by Hernan Sellers on 01/08/2025. us De Interface Lab LAB - BLOOD ORDERABLES Edited R esult - Final PETE PFT LABDE INTERFACE documented in this encounter Visit Diagnoses Not on filedocumented in this encounter Care Teams Insurance Claims Examiner Relationship Specialty Start Date End Date Laurita Duncan MD [facility] [address] [place] [address] PCP - General Family Practice 10/18/17 Rivka Stroud DO [address] [place] [address] Physician Cardiovascular Disease 01/06/23 Rivka Stroud DO [address] [place] [address] Assigned Heart and Vascular Provider 08/12/24 Kimberly Sotelo PA-C [address] [address] Physician Studio Control Operator Cardiology 12/18/24 documented as of this encounter
--- OUTSIDE RECORDS SUMMARY | 2025-01-18 05:29 | XMS_ITS | Encounter Summary ---
Author Organization [place] Address [address] [facility] [place] [address] Care Team Providers Care Accuracy Expert Name Role Phone Laurita Duncan MD Primary Care Provider + Rivka Stroud DO Unavailable [phone] William Ordoñez MD Unavailable [phone] Rivka Stroud DO Unavailable [phone] Kimberly Sotelo PA-C Unavailable [phone] Reason for Visit * Reason Onset Date Comments Refill Request 04/15/2024 metoprolol succi megan ER (TOPROL XL) 25 MG 24 hr tablet Encounter Details Date Type Department Care Team (Late st Contact Info) Description 04/15/2024 [facility] [address] [place] [address] Rivka Stroud DO [address] [facility] [address] [place], [place] [id number] Refill Request (metoprolol succinate ER (TOPROL XL) [...] on file Legal Sex Female 3:33 AM GRIT BLASTER Gender Identity Not on file Sexual Orientation Not on file documented as of this encounter Miscellaneous Notes * Telephone Encounter - Yoel Covarrubias - 04/15/2024 4:01 PM CST [facility] Call Center Phone Message May a detailed message be left on voicemail: yes Reason for Call: Medication Refill Request Has the patient contacted the pharmacy for the refill? Yes Name of medication being requested: metoprolol succinate ER (TOPROL XL) 25 MG 24 hr tablet Provider who prescribed the medication: Dr. Stroud Pharmacy: [facility] DEL[facility] - [address] Date medication is needed: 04/29/2024 Action Taken: Other: Cardiology Travel Screening: Not Applicable Thank you! Specialty Access Center Date of Service: BLASTER documented in this encounter Plan of Treatment Upcoming Encounters Date Type Department Care Team (Late st Contact Info) Description 01/20/2025 1:20 PM GRIT BLASTER Office Visit [facility] [address] [place] [phone] Kimberly Sotelo, PA-C [address] [place], [place] [address] documented as of this encounter Visit Diagnoses Not on filedocumented in this encounter Care Teams Accuracy Expert Relationship Specialty Start Date End Date Laurita Duncan MD [facility] [id number] [place] [address] PCP - General Family Practice 10/18/17 Rivka Stroud DO [address] [place] [address] Physician Cardiovascular Disease 01/06/23 William Ordoñez MD [address] [place] [address] Assigned Heart and Vascular Provider 10/13/23 08/11/24 Rivka Stroud DO [address] [place] [id number] Assigned Heart and Vascular Provider 08/12/24 Kimberly Sotelo PA-C [address] [address] Physician Quality Analyst/Technical Writer Cardiology 12/18/24 documented as of this encounter
--- OUTSIDE RECORDS SUMMARY | 2025-01-18 05:29 | XMS_ITS | Encounter Summary ---
Author Organization [place] Address [address] [place] [address]. 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 Gender Identity Not on file Sexual Orientation Not on file documented as of this encounter Plan of Treatment Upcoming Encounters Date Type Department Care Team (Late st Contact Info) Description 01/20/2025 1:20 PM BLENDER/BRAZE APPLICATOR Office Visit [facility] [address] [place] [address] Kimberly Sotelo PA-C [address] [facility] [address] [place] [address] documented as of this encounter Procedures Procedure Name Priority Date/Time Associated Diagnosis Comments CBC WITH PLATELETS Routine 12/13/2024 10 :30 PM CDT documented in this encounter Results * CBC with platelets (12/13/2024 10:30 PM [...] Narrative PETE PFT - 01/08/2025 8:52 AM BLENDER/BRAZE APPLICATOR Verified by Hernan Sellers on 01/08/2025. us De Interface Lab LAB - BLOOD ORDERABLES Edited R esult - Final PETE PFT LABDE INTERFACE documented in this encounter Visit Diagnoses Not on filedocumented in this encounter Care Teams Vacuum Plastic Forming Machine Operator Relationship Specialty Start Date End Date Laurita Duncan MD [facility] [id number] [place] [address] PCP - General Family Practice 10/18/17 Rivka Stroud DO [address] [place] [address] Physician Cardiovascular Disease 01/06/23 Rivka Stroud DO [address] [place] [address] Assigned Heart and Vascular Provider 08/12/24 Kimberly Sotelo, PAJluisC [address] [address] Physician Pipe Line Repairer Cardiology 12/18/24 documented as of this encounter
--- NOTE | 2025-01-18 05:56 | CRLHL7_ITS ---
For Patients: As a result of the Century Cures Act, medical imaging exams and procedure reports are released immediately into your electronic medical record. You may view this report before your referring provider. If you have questions, please contact your health care provider. INDICATION: Dyspnea on exertion. TECHNIQUE: Chest 2 views. COMPARISON: 12/13/2024. FINDINGS: No pneumothorax. Small bilateral pleural effusions, [id number], with mild left basilar opacity. Prominence of the bilateral pulmonary interstitium. Unchanged calcified granuloma at the left lung base. Aortic atherosclerosis. Cardiomegaly, unchanged. Upper abdomen and osseous structures as imaged show no acute abnormality. IMPRESSION: Interstitial pulmonary edema with small pleural effusions and left basilar atelectasis or airspace disease. Dictated by Noah Horta MD @ 01/18/2025 6:59:09 AM (Electronically Signed)
--- NOTE | 2025-01-18 05:59 | ED.GENADULT ---
HPI - General Adult General Date Seen: 01/18/25 <Jeri Dick MD - Last Filed: 01/19/25 10:19> Chief complaint: Shortness of Breath/Dyspnea <Jeri Dick MD - Last Filed: 01/19/25 10:19> Stated complaint: difficulty breathing <Jeri Dick MD - Last Filed: 01/19/25 10:19> Time Seen by Provider: 01/18/25 05:46 <Jeri Dick MD - Last Filed: 01/19/25 10:19> History of Present Illness HPI narrative: Patient is a 74-year-old woman with a history of paroxysmal atrial fibrillation, recent cardioversion at the end of November, who presents with dyspnea on exertion which she says has been there at least for the past few weeks but it has been getting worse. She was successfully cardioverted at the end of November, she is anticoagulated on rivaroxaban, but says that she had a ZIO patch on after cardioversion and when it was red she was in AFib 43% of the time. She is in AFib tonight. She was on the line with the triage nurse for an hour so apparently tonight and finally opted to come in. She did see her primary doctor after her cardioversion at that time she was not having as much trouble. A BNP was done and noted to be 3000 and her primary doctor told her that she had a ?soggy heart and she has a cardiology appointment in a couple of days. No recent echo as best as we can tell. She has not had chest pain, fever, cough. She has had a little bit of inflammation near the placement of an old brought in her left ankle for which she was treated with antibiotics, cephalexin, she still on that. She had been on Augmentin just before that prescribed by her primary doctor for possible bronchitis. She has not had lower extremity swelling or pain otherwise. <Jeri Dick MD - Last Filed: 01/19/25 10:19> Related Data Home medications: Home Medications ?Medication ?Instructions ?Recorded ?Confirmed alendronate 70 mg tablet 70 mg PO 11/18/23 01/09/25 latanoprost 0.005 % eye drops drp ophthalmic (eye) 11/18/23 01/09/25 lisinopril 10 mg tablet 10 mg PO BID 11/18/23 01/09/25 metoprolol succinate 25 mg 25 mg PO BID 11/18/23 01/09/25 tablet,extended release 24 hr rivaroxaban 20 mg tablet (Xarelto) 20 mg PO DAILY 11/18/23 01/09/25 rosuvastatin 10 mg tablet 10 mg PO QPM 11/18/23 01/09/25 ticagrelor 90 mg tablet (Brilinta) 90 mg PO BID 11/18/23 01/09/25 nitroglycerin 0.4 mg sublingual mg sublingual 11/20/23 01/09/25 tablet Previous Rx's ?Medication ?Instructions ?Recorded furosemide 20 mg tablet (Lasix) 20 mg PO DAILY #10 tabs 01/18/25 <Jeri Dick MD - Last Filed: 01/19/25 10:19> Allergies/adverse reactions: Allergies Allergy/AdvReac Type Severity Reaction Status Date / Time adhesive Allergy Unknown Verified 01/09/25 10:42 Sulfa (Sulfonamide Allergy Unknown Verified 01/09/25 10:42 Antibiotics) codeine AdvReac Nausea Verified 01/09/25 10:42 <Jeri Dick MD - Last Filed: 01/19/25 10:19> Review of Systems Status of ROS: Reports: 10 or more systems reviewed and unremarkable except as noted in History and below <Jeri Dick MD - Last Filed: 01/19/25 10:19> [facility] Medical History: Medical History Osteopenia ?M85.80 - Other specified disorders of bone density and structure, unspecified site (ICD-10) CAD in [place] artery ?I25.10 - Atherosclerotic heart disease of [place] coronary artery without angina pectoris (ICD-10) Paroxysmal supraventricular tachycardia ?I47.10 - Supraventricular tachycardia, unspecified (ICD-10) <Jeri Dick MD - Last Filed: 01/19/25 10:19> Surgical History: Surgical History History of heart artery stent ?Z95.5 - Presence of coronary angioplasty implant and graft (ICD-10) History of biopsy (11/1994) ?Z98.890 - Other specified postprocedural states (ICD-10) History of open reduction and internal fixation (ORIF) procedure (1983) ?Z98.890 - Other specified postprocedural states (ICD-10) Lipoma (1994) ?D17.9 - Benign lipomatous neoplasm, unspecified (ICD-10) <Jeri Dick MD - Last Filed: 01/19/25 10:19> Social History: Social History Smoking Status: Never smoker Do you use any of these nicotine containing products: None Second hand tobacco smoke exposure: No How often do you have a drink containing alcohol: never AUDIT-C Alcohol total score: 0 Non-prescribed substance use: denies use service: No <Jeri Dick MD - Last Filed: 01/19/25 10:19> Exam Narrative: Exam Narrative: Vital signs reviewed In general, an alert, nontoxic elderly woman. Breathing easily at rest. Head: Normocephalic, atraumatic. Eyes: Sclera clear. Pupils equal and reactive. ENT: Mucous membranes moist. Neck: Supple without adenopathy. Heart: Tachycardic, regular. No obvious murmur. Lungs: Few crackles noted primarily at the right base. No increased work of breathing. No wheezing. Abdomen: Soft, nontender to palpation. Extremities: Well perfused, pulses intact. No significant edema. Varicosities are noted. On the left leg she has an area of chronic skin discoloration near this previous myron, but there is no erythema or warmth. Calf tenderness. Neurologic: Alert, conversant. Speech fluent, face symmetric. Moves all extremities equally. Skin: Warm, dry well perfused. Affect: Normal. <Jeri Dick MD - Last Filed: 01/19/25 10:19> Const: Vital Signs, click to edit/add: Vital Signs - 24 hr 01/18/25 05:40 01/18/25 05:44 01/18/25 06:22 Temperature 97.0 F L Pulse Rate Pulse Rate [Left P ulse Oximeter] 118 H Respiratory Rate 20 Blood Pressure Blood Pressure [Ri ght Upper Arm] 133/117 H 154/139 H Pulse Oximetry 91 95 95 Oxygen Delivery Me thod Room Air Room Air 01/18/25 07:02 01/18/25 07:03 01/18/25 07:15 Temperature Pulse Rate 88 81 79 Pulse Rate [Left P ulse Oximeter] Respiratory Rate 17 22 Blood Pressure 132/96 H Blood Pressure [Ri ght Upper Arm] Pulse Oximetry 93 93 94 Oxygen Delivery Me thod 01/18/25 07:16 01/18/25 07:30 01/18/25 07:32 Temperature Pulse Rate 84 85 89 Pulse Rate [Left P ulse Oximeter] Respiratory Rate 18 20 11 L Blood Pressure 134/93 H 126/93 H Blood Pressure [Ri ght Upper Arm] Pulse Oximetry 96 97 93 Oxygen Delivery Me thod <Jeri Dick MD - Last Filed: 01/19/25 10:19> Vital Signs, click to edit/add: Vital Signs - 24 hr 01/18/25 05:40 01/18/25 05:44 01/18/25 06:22 Temperature 97.0 F L Pulse Rate Pulse Rate [Left P ulse Oximeter] 118 H Respiratory Rate 20 Blood Pressure Blood Pressure [Ri ght Upper Arm] 133/117 H 154/139 H Pulse Oximetry 91 95 95 Oxygen Delivery Me thod Room Air Room Air 01/18/25 07:02 01/18/25 07:03 01/18/25 07:15 Temperature Pulse Rate 88 81 79 Pulse Rate [Left P ulse Oximeter] Respiratory Rate 17 22 Blood Pressure 132/96 H Blood Pressure [Ri ght Upper Arm] Pulse Oximetry 93 93 94 Oxygen Delivery Me thod 01/18/25 07:16 01/18/25 07:30 01/18/25 07:32 Temperature Pulse Rate 84 85 89 Pulse Rate [Left P ulse Oximeter] Respiratory Rate 18 20 11 L Blood Pressure 134/93 H 126/93 H Blood Pressure [Ri ght Upper Arm] Pulse Oximetry 96 97 93 Oxygen Delivery Me thod <Karl Carr MD - Last Filed: 01/18/25 09:10> Course Course ED Course: Patient presents with gradually worsening dyspnea on exertion, hypoxia, tachycardia in the setting of atrial fibrillation. Diagnostic considerations would include congestive heart failure, atrial fibrillation, pneumonia, pulmonary embolism, pleural effusion, anemia, among others. In EKG here shows atrial fibrillation, ventricular rate of 93 the time every EKG. She has a left bundle-branch block which is old compared to previous EKG. Labs are notable for a normal white blood cell count and hemoglobin, D-dimer 0.47, venous gas showing a pCO2 of 38 normal pH and bicarb. Metabolic panel unremarkable, magnesium 1.8 BNP 39 70 which is stable compared to her BNP done at her clinic recently. TSH normal. Chest x-ray by my review showed some evidence of pulmonary edema, radiology report reviewed and they note interstitial pulmonary edema with small pleural effusions and left basilar atelectasis or airspace disease. She does not have any symptoms suggestive of pneumonia. I gave her 5 mg of metoprolol IV here. She has not had her morning meds yet including her metoprolol that she takes for rate control. Initially when ambulatory her heart rate was in the 150s, she did not develop any hypoxia with O2 stats remaining above 95% with ambulation. She did feel short of breath. After IV metoprolol, heart rate is controlled with ambulation with a max heart rate of 102. She continues to feel somewhat short of breath although it has improved. Her high sensitivity troponin returned 23.4. I suspect this is due to for rate control and some congestive heart failure, but will recheck and ensure that it is stable. Overall, if so, I think it is reasonable to send her home with a little bit of diuresis, she has a cardiology appointment in 2 days time and further rate control can be addressed at that time. Dr. Carr will follow up on the repeat troponin and discharge if stable. <Jeri Dick MD - Last Filed: 01/19/25 10:19> Vital Signs Vital signs: Initial Vital Signs Temperature 97.0 F L 01/18/25 05:40 Temperature Source Temporal Artery Scan 01/18/25 05:40 Pulse Rate 118 H 01/18/25 05:40 Pulse Rhythm Irregular, Irregularly Irregular 01/18/25 05:40 Respiratory Rate 20 01/18/25 05:40 Blood Pressure 133/117 H 01/18/25 05:40 Blood Pressure Mean 122 H 01/18/25 05:40 Blood Pressure Position Sitting 01/18/25 05:40 Pulse Oximetry 91 01/18/25 05:40 Oxygen Delivery Method Room Air 01/18/25 05:40 Vital Signs Temperature 97.0 F L 01/18/25 05:40 Pulse Rate 118 H 01/18/25 05:40 Respiratory Rate 20 01/18/25 05:40 Blood Pressure 133/117 H 01/18/25 05:40 Pulse Oximetry 91 01/18/25 05:40 Oxygen Delivery Method Room Air 01/18/25 05:40 Temperature 97.0 F L 01/18/25 05:40 Pulse Rate 87 01/18/25 09:02 Respiratory Rate 9 L 01/18/25 09:02 Blood Pressure 156/141 H 01/18/25 09:02 Pulse Oximetry 95 01/18/25 09:02 Oxygen Delivery Method Room Air 01/18/25 05:44 <Jeri Dick MD - Last Filed: 01/19/25 10:19> Initial Vital Signs Temperature 97.0 F L 01/18/25 05:40 Temperature Source Temporal Artery Scan 01/18/25 05:40 Pulse Rate 118 H 01/18/25 05:40 Pulse Rhythm Irregular, Irregularly Irregular 01/18/25 05:40 Respiratory Rate 20 01/18/25 05:40 Blood Pressure 133/117 H 01/18/25 05:40 Blood Pressure Mean 122 H 01/18/25 05:40 Blood Pressure Position Sitting 01/18/25 05:40 Pulse Oximetry 91 01/18/25 05:40 Oxygen Delivery Method Room Air 01/18/25 05:40 Vital Signs Temperature 97.0 F L 01/18/25 05:40 Pulse Rate 118 H 01/18/25 05:40 Respiratory Rate 20 01/18/25 05:40 Blood Pressure 133/117 H 01/18/25 05:40 Pulse Oximetry 91 01/18/25 05:40 Oxygen Delivery Method Room Air 01/18/25 05:40 Temperature 97.0 F L 01/18/25 05:40 Pulse Rate 87 01/18/25 09:02 Respiratory Rate 9 L 01/18/25 09:02 Blood Pressure 156/141 H 01/18/25 09:02 Pulse Oximetry 95 01/18/25 09:02 Oxygen Delivery Method Room Air 01/18/25 05:44 <Karl Carr MD - Last Filed: 01/18/25 09:10> Medications Administered Medications: Discontinued Medications Generic Name Dose Route Start Last Admin Trade Name Freq PRN Reason Stop Dose Admin Furosemide 40 mg 01/18/25 07:54 01/18/25 08:02 Furosemide 10 Mg/Ml Inj IVP 01/18/25 07:55 40 mg ONCE ONE Administration Metoprolol Tartrate 5 mg 01/18/25 05:58 01/18/25 06:43 Metoprolol Tartrate 1 Mg/Ml Inj IVP 01/18/25 05:59 5 mg ONCE ONE Administration <Jeri Dick MD - Last Filed: 01/19/25 10:19> Discontinued Medications Generic Name Dose Route Start Last Admin Trade Name López PRN Reason Stop Dose Admin Furosemide 40 mg 01/18/25 07:54 01/18/25 08:02 Furosemide 10 Mg/Ml Inj IVP 01/18/25 07:55 40 mg ONCE ONE Administration Metoprolol Tartrate 5 mg 01/18/25 05:58 01/18/25 06:43 Metoprolol Tartrate 1 Mg/Ml Inj IVP 01/18/25 05:59 5 mg ONCE ONE Administration <Karl Carr MD - Last Filed: 01/18/25 09:10> Medical Decision Making MDM Narrative Medical decision making narrative: Patient signed out to Dr. Carr at shift change-8:00 a.m., pending repeat troponin. Patient presented with AFib with RVR and signs of CHF that is not hypoxic. Initial troponin was mildly abnormal, and thought to be related to demand ischemia. Patient signed over to Dr. Carr with pending repeat troponin. His lung disease is stable or slightly declining this would support demand ischemia and the patient can discharge home. If the troponin is rising, Dr. aCrr will arrange appropriate disposition (potentially admit for NSTEMI). Repeat troponin came back stable at 22.9. This would fit with a non rising troponin and patient will be discharged per Dr. Villa plan. I did review the repeat labs with the patient and her family at about 9:00 a.m.. They are comfortable and discharged home. She is already feeling the need to urinate and is beginning to diurese after having received Lasix. Questions answered. Precautions return to the ER reviewed. <Karl Carr MD - Last Filed: 01/18/25 09:10> Lab Data Labs: Lab Results 01/18/25 01/18/25 Range/Units 06:22 08:07 WBC 7.76 (4.50-11.00) K/uL RBC 4.64 (4.00-5.20) m/uL Hgb 13.3 (12.0-16.0) gm/dL Hct 42.4 (33.0-51.0) % MCV 91 (80-100) fL MCH 29 (26-34) pg MCHC 31 L (32-36) gm/dL RDW Coeff of Brianna 13.1 (11.5-15.5) % Plt Count 204 (140-440) K/uL Neut % (Auto) 71.0 (42.0-72.0) % Lymph % (Auto) 19.3 L (20-44) % Bonner % (Auto) 8.1 (0.0-11.0) % Eos % (Auto) 1.2 (0.0-7.0) % Baso % (Auto) 0.3 (0.0-3.0) % Neut # (Auto) 5.51 (1.7-7.0) K/uL Lymph # (Auto) 1.50 (0.90-2.90) K/uL Bonner # (Auto) 0.60 (0.00-0.90) K/UL Eos # (Auto) 0.09 (0.00-0.50) K/uL Baso # (Auto) 0.02 (0.00-0.30) K/uL Abs Immat Gran (auto) 0.01 (0.00-0.30) K/uL Imm/Tot Granulo (auto) 0.1 % D-Dimer Quant (PE/DVT) 0.47 (0.00-0.50) ug/ml VBG pH 7.396 (7.32-7.43) VBG pCO2 38 L (40-50) mmHG VBG pO2 47.5 H (25-47) mmHG VBG HCO3 24 (21-28) mmol/L Sodium 138 (135-149) mmol/L Potassium 3.9 (3.6-5.1) mmol/L Chloride 105 (96-114) mmol/L Carbon Dioxide 22 (20-32) mmol/L Anion Gap 11 (7-15) mEq/L BUN 20 (7-30) mg/dL Creatinine 0.8 (0.5-1.5) mg/dL Estimated Creat Clear 45.09 Estimated GFR 78 ml/min Glucose 120 H (60-115) mg/dL Calcium 10.2 (8.4-10.6) mg/dL Magnesium 1.8 (1.5-2.6) mg/dL Total Bilirubin 1.0 (0.1-1.5) mg/dL Direct Bilirubin 0.2 (0.0-0.5) mg/dL AST 48 H (12-35) U/L ALT 59 H (4-35) U/L Alkaline Phosphatase 85 (40-150) U/L POC Troponin I High Sensi 23.9 H* 22.9 H* (2.9-13.0) pg/mL NT-Pro-B Natriuret Pep 3970 H (See Note) pg/mL Total Protein 6.4 (6.0-8.3) g/dL Albumin 3.9 (3.3-5.0) g/dL TSH 1.160 (0.270-4.200) uIU/mL <Jeri Dick MD - Last Filed: 01/19/25 10:19> Lab Results 01/18/25 01/18/25 Range/Units 06:22 08:07 WBC 7.76 (4.50-11.00) K/uL RBC 4.64 (4.00-5.20) m/uL Hgb 13.3 (12.0-16.0) gm/dL Hct 42.4 (33.0-51.0) % MCV 91 (80-100) fL MCH 29 (26-34) pg MCHC 31 L (32-36) gm/dL RDW Coeff of Brianna 13.1 (11.5-15.5) % Plt Count 204 (140-440) K/uL Neut % (Auto) 71.0 (42.0-72.0) % Lymph % (Auto) 19.3 L (20-44) % Bonner % (Auto) 8.1 (0.0-11.0) % Eos % (Auto) 1.2 (0.0-7.0) % Baso % (Auto) 0.3 (0.0-3.0) % Neut # (Auto) 5.51 (1.7-7.0) K/uL Lymph # (Auto) 1.50 (0.90-2.90) K/uL Bonner # (Auto) 0.60 (0.00-0.90) K/UL Eos # (Auto) 0.09 (0.00-0.50) K/uL Baso # (Auto) 0.02 (0.00-0.30) K/uL Abs Immat Gran (auto) 0.01 (0.00-0.30) K/uL Imm/Tot Granulo (auto) 0.1 % D-Dimer Quant (PE/DVT) 0.47 (0.00-0.50) ug/ml VBG pH 7.396 (7.32-7.43) VBG pCO2 38 L (40-50) mmHG VBG pO2 47.5 H (25-47) mmHG VBG HCO3 24 (21-28) mmol/L Sodium 138 (135-149) mmol/L Potassium 3.9 (3.6-5.1) mmol/L Chloride 105 (96-114) mmol/L Carbon Dioxide 22 (20-32) mmol/L Anion Gap 11 (7-15) mEq/L BUN 20 (7-30) mg/dL Creatinine 0.8 (0.5-1.5) mg/dL Estimated Creat Clear 45.09 Estimated GFR 78 ml/min Glucose 120 H (60-115) mg/dL Calcium 10.2 (8.4-10.6) mg/dL Magnesium 1.8 (1.5-2.6) mg/dL Total Bilirubin 1.0 (0.1-1.5) mg/dL Direct Bilirubin 0.2 (0.0-0.5) mg/dL AST 48 H (12-35) U/L ALT 59 H (4-35) U/L Alkaline Phosphatase 85 (40-150) U/L POC Troponin I High Sensi 23.9 H* 22.9 H* (2.9-13.0) pg/mL NT-Pro-B Natriuret Pep 3970 H (See Note) pg/mL Total Protein 6.4 (6.0-8.3) g/dL Albumin 3.9 (3.3-5.0) g/dL TSH 1.160 (0.270-4.200) uIU/mL <Karl Carr MD - Last Filed: 01/18/25 09:10> Imaging Data Chest x-ray: Attestation: I have reviewed the pertinent imaging results. <Jeri Dick MD - Last Filed: 01/19/25 10:19> Radiologist's impression: Patient: Aleshia Hurtado MR#: [id number] : 1950 Acct:[id number] Loc: ED Service Date: 01/18/[address]: Ordering Physician: Jeri Dick M.D. Date of Service: 01/18/25 Procedure(s): XR chest 2V Accession Number(s): [id number] cc: Jeri Dick M.D.; Laurita Duncan M.D.~ For Patients: As a result of the Cures Act, medical imaging exams and procedure reports are released immediately into your electronic medical record. You may view this report before your referring provider. If you have questions, please contact your health care provider. INDICATION: Dyspnea on exertion. TECHNIQUE: Chest 2 views. COMPARISON: 12/13/2024. FINDINGS: No pneumothorax. Small bilateral pleural effusions, [id number], with mild left basilar opacity. Prominence of the bilateral pulmonary interstitium. Unchanged calcified granuloma at the left lung base. Aortic atherosclerosis. Cardiomegaly, unchanged. Upper abdomen and osseous structures as imaged show no acute abnormality. IMPRESSION: Interstitial pulmonary edema with small pleural effusions and left basilar atelectasis or airspace disease. Dictated by Noah Horta MD @ 01/18/2025 6:59:09 AM <Jeri Dick MD - Last Filed: 01/19/25 10:19> Discharge Plan Discharge Clinical Impression: Congestive heart failure, Atrial fibrillation <Jeri Dick MD - Last Filed: 01/19/25 10:19> Patient Disposition: Home, Self-Care <Jeri Dick MD - Last Filed: 01/19/25 10:19> Condition: Improved <Jeri Dick MD - Last Filed: 01/19/25 10:19> Additional Instructions: As discussed, I am going to put you on a diuretic for few days to pull off a little bit of fluid and hopefully improve your shortness of breath. Continue to take your metoprolol as prescribed, you might consider keeping track of your heart rate when you are up and walking over the weekend so that you can discuss this with the head wrestling coach. If you are feeling worse rather than better, are more severely short of breath with exertion or short of breath at rest, or have new symptoms such as chest pain, fever, fainting or other worsening, return to the emergency department at any time. <Jeri Dick MD - Last Filed: 01/19/25 10:19> Prescriptions: New furosemide [Lasix] 20 mg tablet 20 mg PO DAILY Qty: 10 2RF No Action nitroglycerin 0.4 mg tablet, sublingual sublingual latanoprost 0.005 % drops ophthalmic (eye) alendronate 70 mg tablet 70 mg PO lisinopril 10 mg tablet 10 mg PO BID metoprolol succinate 25 mg tablet extended release 24 hr 25 mg PO BID rosuvastatin 10 mg tablet 10 mg PO QPM ticagrelor [Brilinta] 90 mg tablet 90 mg PO BID Xarelto 20 mg tablet 20 mg PO DAILY <Jeri Dick MD - Last Filed: 01/19/25 10:19> Follow Up/Referrals: Laurita Duncan MD [Primary Care Provider, Family Practice] <Jeri Dick MD - Last Filed: 01/19/25 10:19> Stand Alone Forms: [employer] Info Instructions <Jeri Dick MD - Last Filed: 01/19/25 10:19> Procedures ABG Interpretation ABG Results: 01/18/25 06:22 VBG pH 7.396 VBG pCO2 38 L VBG pO2 47.5 H VBG HCO3 24 <Jeri Dick MD - Last Filed: 01/19/25 10:19> 01/18/25 06:22 VBG pH 7.396 VBG pCO2 38 L VBG pO2 47.5 H VBG HCO3 24 <Karl Carr MD - Last Filed: 01/18/25 09:10>
[2025-01-18 06:34] LABS: HCO3 VBG 24 mmol/L (21-28); PCO2 VBG 38 mmHG (40-50); PO2 VBG 47.5 mmHG (25-47); pH VBG 7.396 (7.32-7.43)
[2025-01-18 06:35] LABS: Hematocrit* 42.4 % (33.0-51.0); Hemoglobin* 13.3 gm/dL (12.0-16.0); Immature Granulocytes Abs Auto 0.01 K/uL (0.00-0.30); Immature Granulocytes Pct Auto 0.1 %; Lymphocytes Absolute Auto 1.50 K/uL (0.90-2.90); Mean Corpuscular HGB Conc 31 gm/dL (32-36); Mean Corpuscular Hemoglobin 29 pg (26-34); Mean Corpuscular Volume 91 fL (80-100); RDW Coefficient of Variation % 13.1 % (11.5-15.5); Red Blood Count* 4.64 m/uL (4.00-5.20); White Blood Count* 7.76 K/uL (4.50-11.00)
[2025-01-18 06:39] LABS: Slide Review Reflex No
[2025-01-18] MEDS: METOPROLOL TARTRATE 1 MG/ML inj 5 MG IVP (06:43)
[2025-01-18 06:51] LABS: Albumin* 3.9 g/dL (3.3-5.0); Chloride* 105 mmol/L (96-114); Potassium* 3.9 mmol/L (3.6-5.1); Sodium* 138 mmol/L (135-149)
[2025-01-18 06:53] LABS: Blood Urea Nitrogen* 20 mg/dL (7-30); Creatinine* 0.8 mg/dL (0.5-1.5); Est. Creatinine Clearance* 45.09; Estimated Glomerular Filt Rate 78 ml/min
[2025-01-18 06:54] LABS: Alanine Aminotransferase* 59 U/L (4-35); Alkaline Phosphatase* 85 U/L (40-150); Anion Gap 11 mEq/L (7-15); Aspartate Amino Transferase* 48 U/L (12-35); Bilirubin Direct* 0.2 mg/dL (0.0-0.5); Bilirubin Total* 1.0 mg/dL (0.1-1.5); Calcium* 10.2 mg/dL (8.4-10.6); Carbon Dioxide* 22 mmol/L (20-32); Glucose* 120 mg/dL (60-115); Total Protein* 6.4 g/dL (6.0-8.3)
[2025-01-18 07:03] LABS: NT Pro B Type NatriureticPept* 3970 pg/mL (See Note)
[2025-01-18 07:13] LABS: D Dimer Quantitative* 0.47 ug/ml (0.00-0.50)
[2025-01-18 07:39] LABS: TSH With Reflex to FT4* 1.160 uIU/mL (0.270-4.200)
[2025-01-18] MEDS: FUROSEMIDE 10 MG/ML inj 40 MG IVP (08:02)
== END 2025-01-18 09:31 | disposition home or self-care (01) ==
PROVIDERS: Emergency Provider Emergency Medicine; PCP Family Medicine
DX: I50.9 Heart failure, unspecified (principal); I48.91 Unspecified atrial fibrillation
CPT/HCPCS: 36415; 71046; 80048; 80076; 82803; 83735; 83880; 84443; 84484; 85025; 85379; 93005; 94761; 96374; 99284; 99285; J1938

== ENCOUNTER 2025-02-04 11:34 | Outpatient (CLI) | payer MEDICARE, SELFPAY ==
--- NOTE | 2025-02-11 13:52 | W.PM.SLEEP ---
Sleep Study Details Details Interpreting Provider: Tobias Date of Sleep Study: 02/04/25 Sleep Study Details: STUDY TYPE:? Home unattended ? BMI:? 22.31 ORDERING PROVIDER:? Tobias INDICATION:? Concern for sleep apnea ? SLEEP SUMMARY:? 279.5 minutes monitored RESPIRATORY SUMMARY:? AHI 8.6 per rule 1A, 5.4 per CMS guideline Low oxygen 85 0.6% of study oxygen less than 90% Snoring 79.1% PERIODIC LIMB MOVEMENTS OF SLEEP:? Not recorded CARDIAC:? Range 51-104, mean 69.4 beats per minute IMPRESSION:? Mild obstructive sleep apnea RECOMMENDATION: Treatment options include CPAP, dental appliance and/or airway expansion surgery.
== END 2025-02-04 11:35 | disposition home or self-care (01) ==
LOC: SLEEP 11:35
PROVIDERS: PCP Family Medicine; Visit Provider Otolaryngology
DX: G47.33 Obstructive sleep apnea (adult) (pediatric) (principal)
CPT/HCPCS: 95806